=== PATIENT | female | born 1940 | race Caucasian/White ===

== ENCOUNTER → 2017-04-17 | Day surgery (SDC) | payer MEDICARE, BC, OTHER ==
[~2017-04-17] VITALS: Ht 167.6 cm; Wt 72.6 kg
[~2017-04-17] MED LIST: /WARF5TA; ACET65TA; ACETAMINOPHEN 325 MG TAB PO PRN; ACETYLCHOLINE OPHTH SOLN 1% 2ML (MIOCHOL-E) As Ordered ONE; AcetaZOLAMIDE 500 MG ER CAP PO ONE; BALANCED SALT IRRIGATION SOLUTION 500ML BAG (FOR OR EYE MACHINE) As Ordered ONE; CALCIUM WITH VITD; CALCTAB68 PO; CRANCAP10 PO; CYCLOPENTOLATE 2% OPHTH SOLN 2ML BTL As Ordered ONE; CYCLOPENTOLATE 2% OPHTH SOLN 2ML BTL OS ONE; FLEC1TAB PO; FLECAINIDE; HEALON DUET (HEALON 10MG/ML 0.55ML & HEALON ENDOCOAT 30MG/ML 0.85ML) As Ordered ONE; KETOROLAC 0.5% OPHTH SOLN OS ONE; LIDOCAINE 1% SDV 5 ML VIAL As Ordered ONE; LIDOCAINE 4% INJ 5 ML AMP OU ONE; LOPR50TA; LR 500 ML IV SCH; METO-346 PO; METOPROLOL; MIDAZOLAM INJ 2 MG/2 ML VIAL (J2250) As Ordered ONE; MIDO5TA PO; MIDODRINE; OCUVITE; OFLOXACIN 0.3 % (OCUFLOX) OPTH SOL 5ML As Ordered ONE; OFLOXACIN 0.3 % (OCUFLOX) OPTH SOL 5ML OS ONE; PERC5TAB8; PERCOCET; PHENYLEPHRINE 2.5% OPHTH SOL 2ML As Ordered ONE; PHENYLEPHRINE 2.5% OPHTH SOL 2ML OS ONE; POVIDONE-IODINE 5% OPHTH PREP SOL 30ML As Ordered ONE; PRAV10TA2; PRAV10TA3 PO; PRESCAP6 PO; PROPARACAINE 0.5% OPHTH SOL 15ML OS PRN; TRIMETHOBENZAMIDE 300 MG CAP PO PRN; TROPICAMIDE 1% OPHTH SOLN 2ML As Ordered ONE; TROPICAMIDE 1% OPHTH SOLN 2ML OS ONE; WARF-23 PO; fentaNYL 100 MCG/2 ML INJECTION (J3010) As Ordered ONE
[2017-04-17] MEDS: CEFUROXIME 1MG/0.1ML INTRACAMERAL INJ As Ordered ONE ×2 (06:25→09:29)
[2017-04-17 10:20] VITALS: BP 172/78
--- NOTE | 2017-04-17 10:20 | RO ---
DATE OF PROCEDURE: 04/17/2017 PREPROCEDURE DIAGNOSIS: Age-related nuclear cataract in the left eye. POSTPROCEDURE DIAGNOSIS: Age-related nuclear cataract in the left eye. PROCEDURE: Phacoemulsification and posterior chamber intraocular lens implantation of the left eye. The lens used was AU00T0, 17.0 diopter. SURGEON: Rosaura Bartholomew MD INSURANCE JOB TITLES: ANESTHESIA: Topical with sedation. DESCRIPTION OF PROCEDURE: The patient was prepped and draped in the usual fashion. A lid speculum was placed between the lids. The eye was fixated. A stab incision was made to the anterior chamber, and 1% non-preserved lidocaine was instilled. Then, viscoelastic was instilled. The eye was re-fixated. A 2.75 mm sapphire keratome was used to make a clear corneal temporal limbal incision. Capsulorrhexis was begun with a 30-gauge bent needle and then carried out in a circular fashion with capsulorrhexis forceps. The lens was hydrodissected, and then the phacoemulsification unit was used to make a groove in the nucleus in two meridians. The nucleus was then cracked into four quadrants. Each quadrant was removed with the phacoemulsification unit. Any remaining cortex was removed with the irrigation and aspiration (I and A) unit. Capsular bag was refilled with viscoelastic. A posterior chamber intraocular lens was placed in the capsular bag without difficulty. Any remaining viscoelastic was removed with the I and A unit. The wound was hydrated, and Miochol and cefuroxime were instilled into the anterior chamber. The patient tolerated the procedure well and went to the recovery room in stable condition.
== END | disposition home or self-care (01) ==
LOC: M SDC 06:12
PROVIDERS: ATTEND Ophthalmology
DX: H25.12 Age-related nuclear cataract, left eye (principal); I48.91 Unspecified atrial fibrillation; E78.5 Hyperlipidemia, unspecified; I10 Essential (primary) hypertension; G47.30 Sleep apnea, unspecified; R94.31 Abnormal electrocardiogram [ECG] [EKG]; Z88.0 Allergy status to penicillin; Z79.899 Other long term (current) drug therapy; Z86.19 Personal history of other infectious and parasitic diseases; Z96.652 Presence of left artificial knee joint; Z78.0 Asymptomatic menopausal state
CPT/HCPCS: 66984; J2250; J3010; V2632

== ENCOUNTER → 2017-04-24 | Day surgery (SDC) | payer MEDICARE, BC, OTHER ==
[~2017-04-24] VITALS: Ht 167.6 cm; Wt 72.0 kg
[~2017-04-24] MED LIST changes: +CEFUROXIME 1MG/0.1ML INTRACAMERAL INJ As Ordered ONE; -CYCLOPENTOLATE 2% OPHTH SOLN 2ML BTL As Ordered ONE; +CYCLOPENTOLATE 2% OPHTH SOLN 2ML BTL OD ONE; -CYCLOPENTOLATE 2% OPHTH SOLN 2ML BTL OS ONE; +KETOROLAC 0.5% OPHTH SOLN OD ONE; -KETOROLAC 0.5% OPHTH SOLN OS ONE; +LR 500 ML IV ONE; -LR 500 ML IV SCH; -OFLOXACIN 0.3 % (OCUFLOX) OPTH SOL 5ML As Ordered ONE; +OFLOXACIN 0.3 % (OCUFLOX) OPTH SOL 5ML OD ONE; -OFLOXACIN 0.3 % (OCUFLOX) OPTH SOL 5ML OS ONE; -PHENYLEPHRINE 2.5% OPHTH SOL 2ML As Ordered ONE; +PHENYLEPHRINE 2.5% OPHTH SOL 2ML OD ONE; -PHENYLEPHRINE 2.5% OPHTH SOL 2ML OS ONE; +PROPARACAINE 0.5% OPHTH SOL 15ML OD PRN; -PROPARACAINE 0.5% OPHTH SOL 15ML OS PRN; -TROPICAMIDE 1% OPHTH SOLN 2ML As Ordered ONE; +TROPICAMIDE 1% OPHTH SOLN 2ML OD ONE; -TROPICAMIDE 1% OPHTH SOLN 2ML OS ONE
[2017-04-24 09:26] VITALS: BP 133/52
--- NOTE | 2017-04-25 15:59 | RO ---
DATE OF PROCEDURE: 04/24/2017 PREPROCEDURE DIAGNOSIS: Age-related nuclear cataract right eye. POSTPROCEDURE DIAGNOSIS: Age-related nuclear cataract right eye. PROCEDURE: Phacoemulsification and posterior chamber intraocular lens implantation. The lens used was AU00T0, 17.0 diopter. SURGEON: Rosaura Bartholomew MD FIELD SCOUT: ANESTHESIA: Topical with sedation. DESCRIPTION OF PROCEDURE: The patient was prepped and draped in the usual fashion. A lid speculum was placed between the lids. The eye was fixated. A stab incision was made to the anterior chamber, and 1% non-preserved lidocaine was instilled. Then, viscoelastic was instilled. The eye was re-fixated. A 2.75 mm sapphire keratome was used to make a clear corneal temporal limbal incision. Capsulorrhexis was begun with a 30-gauge bent needle and then carried out in a circular fashion with capsulorrhexis forceps. The lens was hydrodissected, and then the phacoemulsification unit was used to make a groove in the nucleus in two meridians. The nucleus was then cracked into four quadrants. Each quadrant was removed with the phacoemulsification unit. Any remaining cortex was removed with the irrigation and aspiration (I and A) unit. Capsular bag was refilled with viscoelastic. A posterior chamber intraocular lens was placed in the capsular bag without difficulty. Any remaining viscoelastic was removed with the I and A unit. The wound was hydrated, and Miochol and cefuroxime were instilled into the anterior chamber. The patient tolerated the procedure well and went to the recovery room in stable condition.
== END | disposition home or self-care (01) ==
LOC: M SDC 06:15
PROVIDERS: ATTEND Ophthalmology
DX: H25.11 Age-related nuclear cataract, right eye (principal); I10 Essential (primary) hypertension; I48.2 Chronic atrial fibrillation; R94.31 Abnormal electrocardiogram [ECG] [EKG]; E78.5 Hyperlipidemia, unspecified; G47.30 Sleep apnea, unspecified; Z88.0 Allergy status to penicillin; Z79.899 Other long term (current) drug therapy; Z79.01 Long term (current) use of anticoagulants; Z91.048 Other nonmedicinal substance allergy status; Z87.891 Personal history of nicotine dependence
CPT/HCPCS: 66984; J2250; J3010; V2632

== ENCOUNTER → 2017-08-16 | Outpatient (REF) | payer MEDICARE, BC, OTHER ==
[~2017-08-16] MED LIST changes: -ACETAMINOPHEN 325 MG TAB PO PRN; -ACETYLCHOLINE OPHTH SOLN 1% 2ML (MIOCHOL-E) As Ordered ONE; -AcetaZOLAMIDE 500 MG ER CAP PO ONE; -BALANCED SALT IRRIGATION SOLUTION 500ML BAG (FOR OR EYE MACHINE) As Ordered ONE; -CEFUROXIME 1MG/0.1ML INTRACAMERAL INJ As Ordered ONE; -CYCLOPENTOLATE 2% OPHTH SOLN 2ML BTL OD ONE; -HEALON DUET (HEALON 10MG/ML 0.55ML & HEALON ENDOCOAT 30MG/ML 0.85ML) As Ordered ONE; -KETOROLAC 0.5% OPHTH SOLN OD ONE; -LIDOCAINE 1% SDV 5 ML VIAL As Ordered ONE; -LIDOCAINE 4% INJ 5 ML AMP OU ONE; -LR 500 ML IV ONE; -MIDAZOLAM INJ 2 MG/2 ML VIAL (J2250) As Ordered ONE; -OFLOXACIN 0.3 % (OCUFLOX) OPTH SOL 5ML OD ONE; -PHENYLEPHRINE 2.5% OPHTH SOL 2ML OD ONE; -POVIDONE-IODINE 5% OPHTH PREP SOL 30ML As Ordered ONE; -PROPARACAINE 0.5% OPHTH SOL 15ML OD PRN; -TRIMETHOBENZAMIDE 300 MG CAP PO PRN; -TROPICAMIDE 1% OPHTH SOLN 2ML OD ONE; -fentaNYL 100 MCG/2 ML INJECTION (J3010) As Ordered ONE
[2017-08-16 15:43] LABS: BASO # 0.1 10^3/uL (0.0-0.2); BASO % 0.9 % (0.0-1.0); EOS # 0.2 10^3/uL (0.0-0.50); EOS % 3.1 % (0.0-3.0); IMMATURE GRANULOCYTE % 0.2 % (0-0); LYMPH # 1.4 10^3/uL (1.5-4.5); LYMPH % 23.2 % (24.0-44.0); MEAN CORPUSCULAR HEMOGLOBIN 29.3 pg (27.0-33.0); MEAN CORPUSCULAR HGB CONC 31.8 g/dl (32.0-36.5); MEAN CORPUSCULAR VOLUME 92.3 fl (80.0-96.0); MONO # 0.6 10^3/uL (0.0-0.8); MONO % 9.4 % (0.0-5.0); NEUTROPHILS # 3.7 10^3/uL (1.8-7.7); NEUTROPHILS % 63.2 % (36.0-66.0); PLATELET COUNT, AUTOMATED 262 10^3/uL (150-450); RED CELL DISTRIBUTION WIDTH 13.9 % (11.5-14.5); WHITE BLOOD COUNT 5.9 10^3/uL (4.0-10.0)
[2017-08-16 15:52] LABS: ALBUMIN/GLOBULIN RATIO 1.05 (1.00-1.93); ALKALINE PHOSPHATASE 82 U/L (45-117); ALT/SGPT 17 U/L (12-78); ANION GAP 7 MEQ/L (8-16); AST/SGOT 13 U/L (15-37); BILIRUBIN,TOTAL 0.4 MG/DL (0.2-1.0); BLOOD UREA NITROGEN 14 MG/DL (7-18); CALCIUM LEVEL 10.1 MG/DL (8.8-10.2); CARBON DIOXIDE LEVEL 29 MEQ/L (21-32); CHLORIDE LEVEL 103 MEQ/L (98-107); CREATININE FOR GFR 0.77 MG/DL (0.55-1.02); GLOMERULAR FILTRATION RATE > 60.0 (>39); GLUCOSE, FASTING 81 MG/DL (83-110); POTASSIUM SERUM 4.4 MEQ/L (3.5-5.1); SODIUM LEVEL 139 MEQ/L (136-145); TOTAL PROTEIN 7.8 GM/DL (6.4-8.2)
[2017-08-16 16:25] LABS: FOLATE 20.9 NG/ML (>5.4); VITAMIN B12 LEVEL 499 PG/ML (247-911)
[2017-08-16 16:46] LABS: ERYTHROCYTE SEDIMENTATION RATE 27 mm/hr (0-30)
[2017-08-19 10:51] LABS: ALBUMIN 4.31 GM/DL (3.29-5.55); ALBUMIN % 55.2 % (55.8-66.1); GAMMA GLOBULIN % 21.1 % (11.1-18.8)
[2017-08-22 00:08] LABS: SJOGREN'S ANTI SS-A <0.2 AI (0.0-0.9); SJOGREN'S ANTI SS-B <0.2 AI (0.0-0.9); VITAMIN E LEVEL 22.2 mg/L (6.5-21.5)
== END ==
LOC: M LABNEURO 11:16
PROVIDERS: ATTEND Psychiatry & Neurology Neurology
DX: F06.8 Other specified mental disorders due to known physiological condition (principal); I10 Essential (primary) hypertension; Z79.01 Long term (current) use of anticoagulants; R73.01 Impaired fasting glucose

== ENCOUNTER → 2019-03-05 | Outpatient (REF) | payer MEDICARE, OTHER ==
[~2019-03-05] MED LIST changes: -/WARF5TA; +COUM1TAB17
== END ==
LOC: M LAB LCGH 15:57
PROVIDERS: ATTEND Physician Assistant
DX: B07.9 Viral wart, unspecified (principal)

== ENCOUNTER 2019-09-01 15:36 | Outpatient (CLI) | payer MEDICARE, BC, OTHER ==
[~2019-09-01] VITALS: Ht 167.6 cm; Wt 69.0 kg
[2019-09-01] MEDS ORDERED: ZOLEDRONIC ACID 5 MG in IV 1 EA IV ONE (16:00)
[2019-09-01 16:15] VITALS: BP 152/69
[2019-09-01 16:55] VITALS: BP 127/67
== END 2019-09-01 17:00 | disposition home or self-care (01) ==
LOC: M INFU 15:36
PROVIDERS: ATTEND Internal Medicine Endocrinology, Diabetes & Metabolism
DX: M81.0 Age-related osteoporosis without current pathological fracture (principal); Z88.0 Allergy status to penicillin
CPT/HCPCS: 96365; J3489

== ENCOUNTER → 2019-09-04 | Outpatient (REF) | payer MEDICARE, OTHER ==
[2019-09-04 13:25] LABS: APPEARANCE, URINE CLEAR (CLEAR); BACTERIA, URINE AUTO NEGATIVE (NEGATIVE); BILIRUBIN, URINE AUTO NEGATIVE (NEGATIVE); BLOOD, URINE BLOOD NEGATIVE (NEGATIVE); COLOR, URINE YELLOW (YELLOW); GLUCOSE, URINE (UA) AUTO NEGATIVE (NEGATIVE); KETONE, URINE AUTO TRACE mg/dL (NEGATIVE); LEUKOCYTE ESTERASE, URINE AUTO TRACE (NEGATIVE); MUCUS, URINE SMALL (NEGATIVE); NITRITE, URINE AUTO NEGATIVE (NEGATIVE); PROTEIN, URINE AUTO NEGATIVE (NEGATIVE); RBC, URINE AUTO 0 /HPF (0-3); SPECIFIC GRAVITY URINE AUTO 1.026 (1.002-1.035); SQUAMOUS EPITHELIAL CELL UR AU 1 /HPF (0-6); UROBILINOGEN, URINE AUTO 0.2 mg/dL (0.0-2.0); WBC, URINE AUTO 1 /HPF (0-3)
== END ==
LOC: M SMT 12:58
PROVIDERS: ATTEND Nurse Practitioner Women's Health
DX: N39.0 Urinary tract infection, site not specified (principal)
CPT/HCPCS: 81001; 87086; G0463

== ENCOUNTER → 2019-10-14 | Outpatient (CLI) | payer MEDICARE, BC, OTHER ==
[2019-10-14 14:10] LABS: CALCIUM LEVEL 10.7 MG/DL (8.8-10.2); CREATININE FOR GFR 1.03 MG/DL (0.55-1.30); GLOMERULAR FILTRATION RATE 54.9 (>32)
== END ==
LOC: M LAB 12:13
PROVIDERS: ATTEND Internal Medicine Endocrinology, Diabetes & Metabolism
DX: M81.0 Age-related osteoporosis without current pathological fracture (principal)

== ENCOUNTER 2020-09-02 10:45 | Outpatient (CLI) | payer MEDICARE, BC, OTHER ==
[~2020-09-02] VITALS: Ht 167.6 cm; Wt 70.1 kg
[2020-09-02] MEDS ORDERED: ZOLEDRONIC ACID 5 MG in IV 1 EA IV ONE (11:00)
[2020-09-02 11:15] VITALS: BP 140/89
[2020-09-02 12:35] VITALS: BP 121/78
== END 2020-09-02 12:35 | disposition home or self-care (01) ==
LOC: M INFU 10:45
PROVIDERS: ATTEND Internal Medicine Endocrinology, Diabetes & Metabolism
DX: M81.0 Age-related osteoporosis without current pathological fracture (principal)
CPT/HCPCS: 96365; J3489

== ENCOUNTER 2021-03-17 13:39 | Inpatient (IN) | payer MEDICARE, BC, OTHER ==
[~2021-03-17] VITALS: Ht 167.6 cm; Wt 71.7 kg
[2021-03-17] MEDS ORDERED: ELIQ2.5T PO (13:52)
[2021-03-17] MEDS ORDERED: METO1TAB32 PO (13:52)
[2021-03-17] MEDS ORDERED: BACTDSTA PO (13:52)
[2021-03-17] MEDS ORDERED: MEMA1PAK PO (13:52)
[2021-03-17] MEDS ORDERED: NS 1,000 ML IV ONE (14:35)
[2021-03-17 15:25] LABS: BASO # 0.1 10^3/uL (0.0-0.2); BASO % 0.7 % (0.0-1.0); EOS # 0.4 10^3/uL (0.0-0.5); EOS % 4.8 % (0.0-3.0); HEMATOCRIT 38.7 % (36.0-47.0); HEMOGLOBIN 12.6 g/dl (12.0-15.5); LYMPH % 13.2 % (24.0-44.0); MEAN CORPUSCULAR HEMOGLOBIN 29.3 pg (27.0-33.0); MEAN CORPUSCULAR HGB CONC 32.6 g/dl (32.0-36.5); MONO # 0.8 10^3/uL (0.0-0.8); NEUTROPHILS # 5.3 10^3/uL (1.5-8.5); NEUTROPHILS % 69.8 % (36.0-66.0); PLATELET COUNT, AUTOMATED 259 10^3/uL (150-450); WHITE BLOOD COUNT 7.6 10^3/uL (4.0-10.0)
[2021-03-17] MEDS ORDERED: POTASSIUM CHLORIDE 10 MEQ SR TABLET PO ONE (15:40)
[2021-03-17] MEDS ORDERED: METOPROLOL TART 25 MG TABLET PO ONE (16:00)
[2021-03-17 16:07] LABS: ALBUMIN 3.1 GM/DL (3.2-5.2); ALT/SGPT 15 U/L (12-78); BILIRUBIN,DIRECT 0.2 MG/DL (0.0-0.2); BILIRUBIN,TOTAL 0.4 MG/DL (0.2-1.0); CK-MB VALUE MASS < 1.0 NG/ML (<3.6); CPK CREATINE PHOSPHOKINASE 40 U/L (26-192); LIPASE 109 U/L (73-393); POTASSIUM SERUM 3.3 MEQ/L (3.5-5.1); TOTAL PROTEIN 6.7 GM/DL (6.4-8.2); TROPONIN I < 0.02 NG/ML (< 0.10)
[2021-03-17] MEDS ORDERED: DONE5TAB82 PO (16:52)
[2021-03-17] MEDS ORDERED: CALCD50TA PO (16:52)
[2021-03-17] MEDS ORDERED: ISOVUE-370 76% 100ML VIAL As Ordered ONE (17:00)
[2021-03-17] MEDS: METOPROLOL 5 MG/5 ML VIAL IV SCH ×7 (17:10→23:32)
[2021-03-17] MEDS: KCL 40MEQ in NS 1000ML 1,000 ML IV SCH (18:04)
--- NOTE | 2021-03-17 18:58 | HPEPDOC ---
General Date of Admission 03/17/21 Date of Service: March 17, 2021 Chief Complaint The patient is a 80-year-old female admitted with a reason for visit of Diarrhea. History of Present Illness 80-year-old female with past medical history of paroxysmal atrial fibrillation, hypertension, hyperlipidemia, sleep apnea on CPAP, orthostatic hypotension, vasovagal syncope presented to the emergency room for more than one month history of crampy abdominal pain and diarrhea. Her diarrhea varies from day to d ay can range from anywhere from 5 to 10 times and she is often incontinent of stool. No blood in stool. She also complained of dizziness, weakness, malaise and overall not feeling well. Her abdominal pain is crampy in nature in the central of the abdomen. When it comes it is about 10 x 10 in intensity, but then gradually it passes. She feels the urge to go to the bathroom after each crampy abdominal pain. Of note she was hospitalized twice in [place] in January for UTI and Sepsis. The diarrhea started in the end of January. She came back to [place] on 02/14/21. She got her second COVID vaccine 2 weeks ago here and the first one was in [place]. There was some delay in the second one due to the d iarrhea. She went to see her PMD at [facility] yesterday and had a GI panel done which is positive for C. difficile. In the ED, patient was noted to be in Afib with RVR with a pulse ranging from 120s to 160s. She was also hypokalemic. Patient was admitted for C Diff diarrhea, dehydration, hypokalemia and A. fib with RVR Home Medications Scheduled Apixaban (Eliquis) 2.5 Mg Tablet, 2.5 MG PO BID, (Reported) Calcium/Vitamin D (Calcium 500-Vit D3 200 Tablet) 1 Each Tablet, 1 TAB PO DAILY, (Reported) Donepezil HCl (Donepezil HCl) 5 Mg Tablet, 5 MG PO QHS, (Reported) Memantine HCl (Memantine HCl) 1 Each Tab.ds.pk, 1 CAP PO DAILY, (Reported) TITRATE UP PER DOSE SYLVESTER DIRECTIONS. SHOULD BE ON 2ND WEEK OF TITRATION. Metoprolol Succinate (Metoprolol Succinate) 25 Mg Tab.er.24h, 25 MG PO DAILY, (Reported) Midodrine HCl (Midodrine HCl) 5 Mg Tab, 5 MG PO BID, (Reported) Pravastatin Sodium (Pravastatin Sodium) 10 Mg Tab, 10 MG PO DAILY, (Reported) Sulfamethoxazole/Trimethoprim (Sulfamethoxazole-Tmp Ds Tablet) 1 Each Tablet, 1 TAB PO BID, (Reported) Allergies Coded Allergies: Penicillins (Verified Allergy, Intermediate, hives, 09/01/19) Past Medical History Medical History Paroxysmal ATRIAL FIBRILLATION HTN HLD AROLDO/CPAP DEMENTIA ARTHRITIS FREQUENT UTI'S Orthostatic hypotension, vasovagal syncopal Surgical History KNEE REPLACEMENT LEFT 2008 CARDIAC ABLATION X2 APPENDECTOMY COLONOSCOPY CYSTOSCOPY 10/25/2020 Family History Mother at age 90, had lymphoma. Dad at 78, had colon cancer and heart disease. One sister, ovarian past cancer. Another sister breast cancer Social History * Smoker: non-smoker Alcohol: Denies Drugs: denies A-FIB/CHADSVASC A-FIB History Current/History of A-Fib/PAF?: Yes Current PO Anticoag Therapy: Yes Review of Systems Constitutional: Reports: Malaise, Weakness, Fatigue Eyes: Denies: Pain, Vision change ENT: Denies: Head Aches, Ear Pain, Dysphagia Pulmonary: Denies: Dyspnea, Cough Cardiovascular: Denies: Chest Pain, Palpitations, Orthopnea, Paroxysmal Noc. Dyspnea, Lt Headedness Gastrointestinal: Reports: Abdominal Pain, Diarrhea; Denies: Nausea, Vomiting, Melena, Hematochezia Genitourinary: Denies: Dysuria, Frequency, Incontinence Hematologic: Denies: Bruising, Bleeding Excessively Psych: Reports: Memory Issues Physical Examination General Exam: Positive: Alert, Cooperative, No Acute Distress Eye Exam: Positive: PERRLA, Conjunctiva & lids normal, EOMI; Negative: Sclera icteric ENT Exam: Positive: Atraumatic Neck Exam: Positive: Supple; Negative: JVD, thyromegaly Chest Exam: Positive: Clear to auscultation, Normal air movement Heart Exam: Positive: Tachycardic, Irregular Rhythm, Normal S1, Normal S2; Negative: Murmurs, Rubs Telemetry: Positive: Atrial fibrillation Abdomen Exam: Positive: BS Hyperactive, Soft; Negative: Tenderness, Hepatospenomegaly Extremity Exam: Positive: Edema (2 +); Negative: Clubbing, Cyanosis Neuro Exam: Positive: Normal Speech, Strength at 5/5 X4 ext, Normal Tone Vital Signs Vital Signs Date Time Temp Pulse Resp B/P (MAP) Pulse Ox O2 Delivery O2 Flow Rate FiO2 03/17/21 16:52 146 113/57 03/17/21 13:41 98.2 18 96 Laboratory Data Labs 24H Laboratory Tests 2 03/17/21 14:35: Immature Granulocyte % (Auto) 0.5, Neutrophils (%) (Auto) 69.8H, Lymphocytes (%) (Auto) 13.2L, Monocytes (%) (Auto) 11.0H, Eosinophils (%) (Auto) 4.8H, Basophils (%) (Auto) 0.7, Neutrophils # (Auto) 5.3, Lymphocytes # (Auto) 1.0L, Monocytes # (Auto) 0.8, Eosinophils # (Auto) 0.4, Basophils # (Auto) 0.1, Nucleated Red Blood Cells % (auto) 0.0, Total Bilirubin 0.4, Direct Bilirubin 0.2, Aspartate Amino Transf (AST/SGOT) 18, Alanine Aminotransferase (ALT/SGPT) 15, Alkaline Phosphatase 65, Total Creatine Kinase 40, Creatine Kinase MB < 1.0, Creatine K inase MB Relative Index 2.50, Troponin I < 0.02, Total Protein 6.7, Albumin 3.1L, Albumin/Globulin Ratio 0.9L, Lipase 109 03/17/21 15:09: POC Glucose (Misc Panel) 121H, POC Sodium (Misc Panel) 138, POC Potassium (Misc Panel) 2.9*L, POC Chloride (Misc Panel) 99, POC Total CO2 (Misc Panel) 30.0H, POC Blood Urea Nitrogen (Misc Panel 12, POC Ionized Calcium (Misc Panel) 5.1, POC Creatinine (Misc Panel) 0.8, POC Hematocrit (Misc Panel) 37.0L 03/17/21 16:34: POC Lactate (Misc Panel) 1.83 CBC/BMP Laboratory Tests 03/17/21 14:35 Microbiology Microbiology 03/17/21 Respiratory Virus Panel (PCR) ([facility]) - Final, Complete Assessment/Plan 80-year-old female with past medical history of paroxysmal atrial fibrillation, hypertension, hyperlipidemia, sleep apnea on CPAP, orthostatic hypotension, vasovagal syncope presented to the emergency room for more than one month history of crampy abdominal pain and diarrhea. She also complained of dizziness, weakness, malaise and overall not feeling well. Of note she was hospitalized twice in [place] in January for UTI and Sepsis. The diarrhea started in the end of January. She came back to [place] on 02/14/21. She got her second COVID vaccine 2 weeks ago here and the first one was in [place]. There was some delay in the second one due to the diarrhea. She went to see her PMD at [facility] yesterday and had a GI panel done which is positive for C. difficile. In the ED, patient was noted to be in Afib with RVR with a pulse ranging from 120s to 160s. She was also hypokalemic. Patient was admitted for C Diff diarrhea, dehydration, hypokalemia and A. fib with RVR C diff colitis PO vancomycin isolation Dehydration though patient has bipedal edema but i think she still may be intravascularly dehydrated. So will give IVF overnight Hypokalemia replaced. Afib with RVR will replace IVF and potassium. Received 1 of Po metoprolol BP Soft about 105/60 so did not give the IV metoprolol She is asymptomatic. continue metoprolol q 6 hours if Bp tolerates and eliquis If Bp continues to be low will need have to use digoxin. Dementia will continue donepezil Has h/o orthostatic hypotension will hold midodrine as this can elevate heart rate. Plan / VTE VTE Prophylaxis Ordered?: Yes SANNA CLEANING MD March 17, 2021 17:29
--- NOTE | 2021-03-17 18:59 | REPVR ---
PROCEDURE INFORMATION: Exam: CT Abdomen And Pelvis With Contrast Exam date and time: 03/17/2021 5:08 PM Age: 80 years old Clinical indication: Abdominal pain; Generalized; Additional info: Abd pain, diarrhea TECHNIQUE: Imaging protocol: Computed tomography of the abdomen and pelvis with contrast. Radiation optimization: All CT scans at this facility use at least one of these dose optimization techniques: automated exposure control; mA and/or kV adjustment per patient size (includes targeted exams where dose is matched to clinical indication); or iterative reconstruction. Contrast material: ISOVUE 370; Contrast volume: 100 ml; Contrast route: INTRAVENOUS (IV); COMPARISON: No relevant prior studies available. FINDINGS: Lungs: There is discoid atelectasis or scar in the right lower lobe. Heart size appears enlarged. Small amount of hypodense pericardial fluid. Atherosclerotic calcification in the distal thoracic aorta. Liver: Minimal diffuse fatty liver change. Gallbladder and bile ducts: Questionable tiny gallstones in the gallbladder. There may also be very minimal calcification in the anterior gallbladder wall. No biliary ductal dilatation. Pancreas: Normal. No ductal dilation. Spleen: Normal. No splenomegaly. Adrenal glands: Normal. No mass. Kidneys and ureters: Normal. No hydronephrosis. Stomach and bowel: Small amount of dense material in the mid to distal stomach, most likely ingested radiodense material. There is no bowel dilatation to indicate obstruction. No pneumatosis. There are segments of wall thickening which are relatively long, seen in the descending colon and also in the sigmoid colon. There are multiple sigmoid diverticula with increased vascularity adjacent to the sigmoid colon, and areas of adjacent fat stranding and trace fluid near the sigmoid colon. It is unclear whether findings represent colitis, which is favored, versus diverticulitis. Diverticulitis is considered less likely given that the appearance is multifocal and relatively long segment not clearly localized to a single diverticulum. Appendix: Appendix is partially visualized, in the visualized portion is grossly unremarkable. Intraperitoneal space: Unremarkable. No free air. No significant fluid collection. Vasculature: There is calcified atherosclerotic plaque in the abdominal aorta and medium-sized arteries in the abdomen and pelvis. No aortic aneurysm. Lymph nodes: Unremarkable. No enlarged lymph nodes. Urinary bladder: Unremarkable as visualized. Reproductive: There are multiple calcifications in the uterine myometrium, likely calcified fibroids and vascular calcifications. Bones/joints: 5 mm anterolisthesis at L5-S1. Degenerative facet disease in the lower lumbar spine. Degenerative disc disease at L3-L4 and L5-S1. Soft tissues: Unremarkable. IMPRESSION: 1. Relatively long segment wall thickening involving portions of the descending and sigmoid colon, most likely multifocal colitis, which could be infectious, inflammatory, or ischemic. Adjacent fat stranding and small amount of ascites. There are multiple sigmoid diverticula without definite focal features of diverticulitis. 2. Questionable tiny gallstones in the gallbladder, and there may also be very minimal calcification in the anterior gallbladder wall, which can predispose to gallbladder cancer. 3. Minimal diffuse fatty liver change. Electronically signed by: Juliana Rodriguez On 03/17/2021 18:59:06 PM
--- NOTE | 2021-03-17 19:09 | ECGEPIP ---
[facility] - ED Test Date: 2021-03-17 Pat Name: DESHAWN COLLAZO Department: Room: - Gender: Female [employer] Installer: er : [id number] Requested By: KATARZYNA Seay PA-C Order Number: [id number] Reading MD: Leandro Rangel Measurements Intervals [place] Rate: 128 P: [place]: QRS: 68 QRSD: 112 T: -55 QT: 260 QTc: 379 Interpretive Statements Atrial fibrillation with rapid ventricular response Right bundle branch block T wave abnormality, consider inferolateral ischemia NO PRIORS FOR COMPARISON Electronically Signed on 03-17-2021 19:08:53 EDT by Leandro Rangel
[2021-03-17 19:20] VITALS: BP 115/73
[2021-03-17] MEDS ORDERED: DIGOXIN INJ 0.5 MG/2 ML AMP (J1160) IV ONE (20:00)
[2021-03-17] MEDS: APIXABAN 2.5 MG TAB (ELIQUIS) PO SCH (20:03)
[2021-03-17] MEDS: DONEPEZIL 5 MG TAB PO SCH (20:03)
[2021-03-17] MEDS: METOPROLOL TART 12.5 MG PER 1/2 TAB PO SCH (21:24)
[2021-03-17 21:30] VITALS: BP 138/96
[2021-03-17] MEDS: VANCOMYCIN ORAL SOL 250MG/5ML ORAL SYRINGE PO SCH (23:29)
[2021-03-18] VITALS: BP 110/70
[2021-03-18] MEDS: DIGOXIN INJ 0.5 MG/2 ML AMP (J1160) IV SCH ×2 (01:21→06:50)
[2021-03-18 01:34] LABS: BLOOD UREA NITROGEN 9 MG/DL (7-18); CALCIUM LEVEL 9.1 MG/DL (8.8-10.2); CARBON DIOXIDE LEVEL 26 MEQ/L (21-32); CHLORIDE LEVEL 109 MEQ/L (98-107); CREATININE FOR GFR 0.78 MG/DL (0.55-1.30); GLOMERULAR FILTRATION RATE > 60.0 (>32); GLUCOSE, FASTING 139 MG/DL (70-100); MAGNESIUM LEVEL 1.8 MG/DL (1.8-2.4); POTASSIUM SERUM 3.8 MEQ/L (3.5-5.1); SODIUM LEVEL 140 MEQ/L (136-145)
[2021-03-18] MEDS: METOPROLOL TART 12.5 MG PER 1/2 TAB PO SCH (02:41)
[2021-03-18 04:00] VITALS: BP 128/84
[2021-03-18 05:06] LABS: HEMOGLOBIN 11.8 g/dl (12.0-15.5); MEAN CORPUSCULAR HGB CONC 32.8 g/dl (32.0-36.5); MEAN CORPUSCULAR VOLUME 91.6 fl (80.0-96.0); PLATELET COUNT, AUTOMATED 239 10^3/uL (150-450); RED BLOOD COUNT 3.93 10^6/uL (4.00-5.40); WHITE BLOOD COUNT 12.4 10^3/uL (4.0-10.0)
[2021-03-18] MEDS: VANCOMYCIN ORAL SOL 250MG/5ML ORAL SYRINGE PO SCH ×3 (05:07→18:01)
[2021-03-18] MEDS: KCL 40MEQ in NS 1000ML 1,000 ML IV SCH ×2 (05:07→16:38)
[2021-03-18 05:13] LABS: BLOOD UREA NITROGEN 8 MG/DL (7-18); CALCIUM LEVEL 8.6 MG/DL (8.8-10.2); CARBON DIOXIDE LEVEL 28 MEQ/L (21-32); CHLORIDE LEVEL 109 MEQ/L (98-107); CREATININE FOR GFR 0.82 MG/DL (0.55-1.30); GLOMERULAR FILTRATION RATE > 60.0 (>32); GLUCOSE, FASTING 125 MG/DL (70-100); POTASSIUM SERUM 3.9 MEQ/L (3.5-5.1); SODIUM LEVEL 141 MEQ/L (136-145)
[2021-03-18 05:22] LABS: BASOPHILS 1 % (0-1); EOSINOPHILS 3 % (0-3); LYMPHOCYTES 4 % (16-44); MONOCYTES 7 % (0-5); NEUTROPHILS 81 % (28-66); PLATELET ESTIMATE NORMAL (NORMAL)
[2021-03-18 05:23] LABS: POLYCHROMASIA 1+
[2021-03-18 08:00] VITALS: BP 132/70
[2021-03-18] MEDS: APIXABAN 2.5 MG TAB (ELIQUIS) PO SCH ×2 (09:06→20:21)
[2021-03-18] MEDS: METOPROLOL TART 25 MG TABLET PO SCH ×3 (09:06→20:22)
--- NOTE | 2021-03-18 10:22 | IPNPDOC ---
Subjective Date Seen The patient was seen on 03/18/21. Subjective Chief Complaint/HPI No complaints except for uncontrollable diarrhea, no abdominal pain , no nausea or vomiting. no chest pain or palpitations. Objective Physical Examination General Exam: Positive: Alert, Cooperative, No Acute Distress Eye Exam: Positive: PERRLA, Conjunctiva & lids normal, EOMI; Negative: Sclera icteric ENT Exam: Positive: Atraumatic Neck Exam: Positive: Supple; Negative: JVD, thyromegaly Chest Exam: Positive: Clear to auscultation, Normal air movement Heart Exam: Positive: Tachycardic, Irregular Rhythm, Normal S1, Normal S2; Negative: Murmurs, Rubs Telemetry: Positive: Atrial fibrillation Abdomen Exam: Positive: BS Hyperactive, Soft; Negative: Tenderness, Hepatospenomegaly Extremity Exam: Positive: Edema (2 +); Negative: Clubbing, Cyanosis Neuro Exam: Positive: Normal Speech, Strength at 5/5 X4 ext, Normal Tone Assessment /Plan Assessment 80-year-old female with past medical history of paroxysmal atrial fibrillation, hypertension, hyperlipidemia, sleep apnea on CPAP, orthostatic hypotension, vasovagal syncope presented to the emergency room for more than one month history of crampy abdominal pain and diarrhea. She also complained of dizziness, weakness, malaise and overall not feeling well. Of note she was hospitalized twice in [place] in January for UTI and Sepsis. The diarrhea started in the end of January. She came back to [place] on 02/14/21. She got her second COVID vaccine 2 weeks ago here and the first one was in [place]. There was some delay in the second one due to the diarrhea. She went to see her PMD at [facility] yesterday and had a GI panel done which is positive for C. difficile. In the ED, patient was noted to be in Afib with RVR with a pulse ranging from 120s to 160s. She was also hypokalemic. Patient was admitted for C Diff diarrhea, dehydration, hypokalemia and A. fib with RVR C diff colitis Had 18 bowel movements in the past 24 hours some of them are small, some are larger. PO vancomycin isolation Dehydration though patient has bipedal edema but i think she still may be intravascularly dehydrated. will continue IVF. Hypokalemia replaced. Afib with RVR receiving dig continue metoprolol q 6 hours if Bp tolerates and eliquis pulse is slowing down. Dementia will continue donepezil Has h/o orthostatic hypotension will hold midodrine as this can elevate heart rate. Plan/VTE VTE Prophylaxis Ordered?: Yes VS, I&O, 24H, Fishbone Vital Signs/I&O Vital Signs Date Time Temp Pulse Resp B/P (MAP) Pulse Ox O2 Delivery O2 Flow Rate FiO2 03/18/21 09:06 98 132/70 03/18/21 08:00 97.9 19 95 Room Air I&O- Last 24 Hours up to 6 AM 03/18/21 06:00 Intake Total 2400 ml Output Total 50 ml Balance 2350 ml Laboratory Data 24H LABS Laboratory Tests 2 03/17/21 14:35: Immature Granulocyte % (Auto) 0.5, Neutrophils (%) (Auto) 69.8H, Lymphocytes (%) (Auto) 13.2L, Monocytes (%) (Auto) 11.0H, Eosinophils (%) (Auto) 4.8H, Basophils (%) (Auto) 0.7, Neutrophils # (Auto) 5.3, Lymphocytes # (Auto) 1.0L, Monocytes # (Auto) 0.8, Eosinophils # (Auto) 0.4, Basophils # (Auto) 0.1, Nucleated Red Blood Cells % (auto) 0.0, Total Bilirubin 0.4, Direct Bilirubin 0.2, Aspartate Amino Transf (AST/SGOT) 18, Alanine Aminotransferase (ALT/SGPT) 15, Alkaline Phosphatase 65, Total Creatine Kinase 40, Creatine Kinase MB < 1.0, Creatine Kinase MB Relative Index 2.50, Troponin I < 0.02, Total Protein 6.7, Albumin 3.1L, Albumin/Globulin Ratio 0.9L, Lipase 109 03/17/21 15:09: POC Glucose (Misc Panel) 121H, POC Sodium (Misc Panel) 138, POC Potassium (Misc Panel) 2.9*L, POC Chloride (Misc Panel) 99, POC Total CO2 (Misc Panel) 30.0H, POC Blood Urea Nitrogen (Misc Panel 12, POC Ionized Calcium (Misc Panel) 5.1, POC Creatinine (Misc Panel) 0.8, POC Hematocrit (Misc Panel) 37.0L 03/17/21 16:34: POC Lactate (Misc Panel) 1.83 5/8/21 00:58: Anion Gap 5L, Glomerular Filtration Rate > 60.0, Calcium Level 9.1, Magnesium Level 1.8 03/18/21 04:38: Neutrophils (%) (Auto) , Nucleated Red Blood Cells % (auto) 0.0, Neutrophils 81H, Band Neutrophils 4, Lymphocytes (Manual) 4L, Monocytes (Manual) 7H, Eosinophils (Manual) 3, Basophils (Manual) 1, Polychromasia 1+, Platelet Estimate NORMAL, Anion Gap 4L, Glomerular Filtration Rate > 60.0, Calcium Level 8.6L CBC/BMP Laboratory Tests 03/17/21 14:35 03/18/21 00:58 03/18/21 04:38 Microbiology Microbiology 03/17/21 Gastrointestinal Tract Panel (PCR) - Final, Complete Clostridium Difficile A/B Norovirus 03/17/21 Respiratory Virus Panel (PCR) ([facility]) - Final, Complete SANNA CLEANING MD March 18, 2021 10:22
[2021-03-18 12:00] VITALS: BP 132/61
[2021-03-18] MEDS ORDERED: DIGOXIN INJ 0.5 MG/2 ML AMP (J1160) IV ONE (12:00)
[2021-03-18 16:00] VITALS: BP 144/72
[2021-03-18 20:00] VITALS: BP 130/84
[2021-03-18] MEDS: DONEPEZIL 5 MG TAB PO SCH (20:21)
[2021-03-19] VITALS: BP 141/74
[2021-03-19] MEDS: KCL 40MEQ in NS 1000ML 1,000 ML IV SCH ×3 (00:16→23:40)
[2021-03-19] MEDS: VANCOMYCIN ORAL SOL 250MG/5ML ORAL SYRINGE PO SCH ×5 (00:16→23:43)
[2021-03-19] MEDS: METOPROLOL TART 25 MG TABLET PO SCH ×4 (02:29→20:56)
[2021-03-19 04:00] VITALS: BP 120/75
[2021-03-19 04:35] LABS: BASO % 0.4 % (0.0-1.0); EOS # 0.3 10^3/uL (0.0-0.5); EOS % 2.8 % (0.0-3.0); HEMATOCRIT 37.9 % (36.0-47.0); HEMOGLOBIN 11.8 g/dl (12.0-15.5); LYMPH # 0.7 10^3/uL (1.5-5.0); LYMPH % 6.7 % (24.0-44.0); MEAN CORPUSCULAR HEMOGLOBIN 28.9 pg (27.0-33.0); MEAN CORPUSCULAR HGB CONC 31.1 g/dl (32.0-36.5); MEAN CORPUSCULAR VOLUME 92.7 fl (80.0-96.0); MONO # 0.6 10^3/uL (0.0-0.8); MONO % 5.8 % (2.0-8.0); NEUTROPHILS # 8.6 10^3/uL (1.5-8.5); NEUTROPHILS % 83.6 % (36.0-66.0); PLATELET COUNT, AUTOMATED 237 10^3/uL (150-450); RED BLOOD COUNT 4.09 10^6/uL (4.00-5.40); WHITE BLOOD COUNT 10.3 10^3/uL (4.0-10.0)
[2021-03-19 04:56] LABS: BLOOD UREA NITROGEN 5 MG/DL (7-18); CALCIUM LEVEL 9.4 MG/DL (8.8-10.2); CARBON DIOXIDE LEVEL 25 MEQ/L (21-32); CHLORIDE LEVEL 111 MEQ/L (98-107); CREATININE FOR GFR 0.76 MG/DL (0.55-1.30); GLOMERULAR FILTRATION RATE > 60.0 (>32); GLUCOSE, FASTING 117 MG/DL (70-100); POTASSIUM SERUM 4.3 MEQ/L (3.5-5.1); SODIUM LEVEL 140 MEQ/L (136-145)
--- NOTE | 2021-03-19 07:56 | IPNPDOC ---
Subjective Date Seen The patient was seen on 03/19/21. Subjective Chief Complaint/HPI Confused overnight and agitated, trying to get out of bed. Needed sitter. Still with innumerable bowel movement. Some small and some large. Incontinent of stool. She remains in Afib with rvr. Pulse going up to 150s. Had 27 bowel movements int he last 24 hours Objective Physical Examination General Exam: Positive: Alert, Cooperative, No Acute Distress, Other (confused) Eye Exam: Positive: PERRLA, Conjunctiva & lids normal, EOMI; Negative: Sclera icteric ENT Exam: Positive: Atraumatic Neck Exam: Positive: Supple; Negative: JVD, thyromegaly Chest Exam: Positive: Clear to auscultation, Normal air movement Heart Exam: Positive: Tachycardic, Irregular Rhythm, Normal S1, Normal S2; Negative: Murmurs, Rubs Telemetry: Positive: Atrial fibrillation Abdomen Exam: Positive: BS Hyperactive, Soft; Negative: Tenderness, Hepatospenomegaly Extremity Exam: Positive: Edema (2 +); Negative: Clubbing, Cyanosis Neuro Exam: Positive: Normal Speech, Strength at 5/5 X4 ext, Normal Tone Assessment /Plan Assessment 80-year-old female with past medical history of dementia, paroxysmal atrial fibrillation, hypertension, hyperlipidemia, sleep apnea on CPAP, orthostatic hypotension, vasovagal syncope presented to the emergency room for more than one month history of crampy abdominal pain and diarrhea. She also complained of dizziness, weakness, malaise and overall not feeling well. Of note she was hospitalized twice in [place] in January for UTI and Sepsis. Received 10 days of levo and second time 7 days of cefdinir. She also recieved clindamycin for 7 days in November. Recieved antibioitcs in Sep and Aug of last year also for urine infections. She is now again on Bactrim. The diarrhea started in the end of January. She came back to [place] on 02/14/21. She got her second COVID vaccine 2 weeks ago here and the first one was in [place]. There was some delay in the second one due to the diarrhea. She went to see her PMD at [facility] yesterday and had a GI panel done which is positive for C. difficile. In the ED, patient was noted to be in Afib with RVR with a pulse ranging from 120s to 160s. She was also hypokalemic. Patient was admitted for C Diff colitis, Noro virus diarrhea , dehydration, hypokalemia and A. fib with RVR. C diff colitis and Norovirus diarrhea. Diarrhea continues. CT abdomen and pelvis shows: long segment wall thickening involving portions of the descending and sigmoid colon, most likely multifocal colitis, which could be infectious, inflammatory, or ischemic. Adjacent fat stranding and small amount of ascites. There are multiple sigmoid diverticula without definite focal features of diverticulitis. She was positive for c diff on 02/16/21 when she was given 7 days of vancomycin. Diarrhea did get a little better but did not stop completely. It again worsened in the past 2 weeks C diff still positive on 03/17/21 PO vancomycin second course. isolation Dehydration continue IVF Hypokalemia replaced. Afib with RVR receiving dig continue metoprolol q 6 hours if Bp tolerates and eliquis Patient is also on diltiazem 30 tid ( takes only twice). However as bp is soft will give digoxin. pulse is slowing down. Dementia will continue donepezil Has h/o orthostatic hypotension will hold midodrine as this can elevate heart rate. Calcified gallbladder wall Will need regular follow-up as this may predispose to gallbladder cancer Plan/VTE VTE Prophylaxis Ordered?: Yes VS, I&O, 24H, Yasmin Vital Signs/I&O Vital Signs Date Time Temp Pulse Resp B/P (MAP) Pulse Ox O2 Delivery O2 Flow Rate FiO2 03/19/21 07:25 180 120/75 03/19/21 04:00 97.2 17 97 Room Air I&O- Last 24 Hours up to 6 AM 03/19/21 06:00 Intake Total 2180 ml Balance 2180 ml Laboratory Data 24H LABS Laboratory Tests 2 03/19/21 04:16: Immature Granulocyte % (Auto) 0.7, Neutrophils (%) (Auto) 83.6H, Lymphocytes (%) (Auto) 6.7L, Monocytes (%) (Auto) 5.8, Eosinophils (%) (Auto) 2.8, Basophils (%) (Auto) 0.4, Neutrophils # (Auto) 8.6H, Lymphocytes # (Auto) 0.7L, Monocytes # (Auto) 0.6, Eosinophils # (Auto) 0.3, Basophils # (Auto) 0.0, Nucleated Red Blood Cells % (auto) 0.0, Anion Gap 4L, Glomerular Filtration Rate > 60.0, Calcium Level 9.4 CBC/BMP Laboratory Tests 03/19/21 04:16 Microbiology Microbiology 03/17/21 Gastrointestinal Tract Panel (PCR) - Final, Complete Clostridium Difficile A/B Norovirus 03/17/21 Respiratory Virus Panel (PCR) ([facility]) - Final, Complete SANNA CLEANING MD March 19, 2021 07:56
[2021-03-19 08:00] VITALS: BP 142/76
[2021-03-19] MEDS: APIXABAN 2.5 MG TAB (ELIQUIS) PO SCH ×2 (09:37→20:56)
[2021-03-19] MEDS: DIGOXIN 0.125 MG TAB PO SCH (09:37)
[2021-03-19 12:00] VITALS: BP 129/83
[2021-03-19 16:00] VITALS: BP_SYST 128; BP_SYST 148; BP_DIAS 75; BP_DIAS 82
[2021-03-19 20:00] VITALS: BP 150/74
[2021-03-19] MEDS: DONEPEZIL 5 MG TAB PO SCH (20:56)
[2021-03-20] VITALS: BP 146/77
[2021-03-20] MEDS: METOPROLOL TART 25 MG TABLET PO SCH ×4 (01:57→21:02)
[2021-03-20 04:00] VITALS: BP 154/72
[2021-03-20 05:18] LABS: BASO % 0.5 % (0.0-1.0); EOS # 0.6 10^3/uL (0.0-0.5); EOS % 7.6 % (0.0-3.0); HEMATOCRIT 36.4 % (36.0-47.0); HEMOGLOBIN 11.4 g/dl (12.0-15.5); LYMPH # 1.1 10^3/uL (1.5-5.0); LYMPH % 13.1 % (24.0-44.0); MEAN CORPUSCULAR HEMOGLOBIN 28.8 pg (27.0-33.0); MEAN CORPUSCULAR HGB CONC 31.3 g/dl (32.0-36.5); MEAN CORPUSCULAR VOLUME 91.9 fl (80.0-96.0); MONO # 0.5 10^3/uL (0.0-0.8); MONO % 5.9 % (2.0-8.0); NEUTROPHILS # 5.9 10^3/uL (1.5-8.5); NEUTROPHILS % 72.2 % (36.0-66.0); PLATELET COUNT, AUTOMATED 256 10^3/uL (150-450); RED BLOOD COUNT 3.96 10^6/uL (4.00-5.40); WHITE BLOOD COUNT 8.1 10^3/uL (4.0-10.0)
[2021-03-20 05:36] LABS: BLOOD UREA NITROGEN 4 MG/DL (7-18); CALCIUM LEVEL 9.4 MG/DL (8.8-10.2); CARBON DIOXIDE LEVEL 24 MEQ/L (21-32); CHLORIDE LEVEL 113 MEQ/L (98-107); CREATININE FOR GFR 0.61 MG/DL (0.55-1.30); GLOMERULAR FILTRATION RATE > 60.0 (>32); GLUCOSE, FASTING 86 MG/DL (70-100); POTASSIUM SERUM 4.2 MEQ/L (3.5-5.1); SODIUM LEVEL 141 MEQ/L (136-145)
[2021-03-20] MEDS: VANCOMYCIN ORAL SOL 250MG/5ML ORAL SYRINGE PO SCH ×2 (06:30→12:00)
[2021-03-20 08:00] VITALS: BP 164/82
[2021-03-20] MEDS: KCL 40MEQ in NS 1000ML 1,000 ML IV SCH ×2 (09:02→10:07)
[2021-03-20] MEDS: APIXABAN 2.5 MG TAB (ELIQUIS) PO SCH ×2 (09:07→21:02)
[2021-03-20] MEDS: DIGOXIN 0.125 MG TAB PO SCH (09:07)
--- NOTE | 2021-03-20 11:02 | IPNPDOC ---
Subjective Date Seen The patient was seen on 03/20/21. Subjective Chief Complaint/HPI Very pleasant and oriented x 2 . Reports that did not have to get up at night as much as the night before. Reports feeling stronger, good appetite and keeping everything down. Still having the cramps then has to cutler to the bathroom. Remains in Afib though the pulse rate is getting slower. Objective Physical Examination General Exam: Positive: Alert, Cooperative, No Acute Distress, Other (confused) Eye Exam: Positive: PERRLA, Conjunctiva & lids normal, EOMI; Negative: Sclera icteric ENT Exam: Positive: Atraumatic Neck Exam: Positive: Supple; Negative: JVD, thyromegaly Chest Exam: Positive: Clear to auscultation, Normal air movement Heart Exam: Positive: Tachycardic, Irregular Rhythm, Normal S1, Normal S2; Negative: Murmurs, Rubs Telemetry: Positive: Atrial fibrillation Abdomen Exam: Positive: BS Hyperactive, Soft; Negative: Tenderness, Hepatospenomegaly Extremity Exam: Positive: Edema (2 +); Negative: Clubbing, Cyanosis Neuro Exam: Positive: Normal Speech, Strength at 5/5 X4 ext, Normal Tone Assessment /Plan Assessment 80-year-old female with past medical history of dementia, paroxysmal atrial fibrillation, hypertension, hyperlipidemia, sleep apnea on CPAP, orthostatic hypotension, vasovagal syncope presented to the emergency room for more than one month history of crampy abdominal pain and diarrhea. She also complained of dizziness, weakness, malaise and overall not feeling well. Of note she was hospitalized twice in [place] in January for UTI and Sepsis. Received 10 days of levo and second time 7 days of cefdinir. She also recieved clindamycin for 7 days in November. Recieved antibioitcs in Sep and Aug of last year also for urine infections. She is now again on Bactrim. The diarrhea started in the end of January. She came back to [place] on 02/14/21. She got her second COVID vaccine 2 weeks ago here and the first one was in [place]. There was some delay in the second one due to the diarrhea. She went to see her PMD at [facility] yesterday and had a GI panel done which is positive for C. difficile. In the ED, patient was noted to be in Afib with RVR with a pulse ranging from 120s to 160s. She was also hypokalemic. Patient was admitted for C Diff colitis, Noro virus diarrhea , dehydration, hypokalemia and A. fib with RVR. C diff colitis and Norovirus diarrhea. Diarrhea continues but seems to be a little less and also thicker as per nurses. CT abdomen and pelvis shows: long segment wall thickening involving portions of the descending and sigmoid colon, most likely multifocal colitis, which could be infectious, inflammatory, or ischemic. Adjacent fat stranding and small amount of ascites. There are multiple sigmoid diverticula without definite focal features of diverticulitis. Had 2 courses of antibiotics in January in [place] Levofloxacin and Cefdinir both for Uti/ Sepsis. She was positive for c diff on 02/13/21 when she was given 10 days of vancomycin. Diarrhea did get a little better but did not stop completely. It again worsened in the past 2 weeks. She has again been on Bactrim for a UTI for the week before admission to hospital C diff still positive on 03/16/21 PO vancomycin second course. isolation ID consult. Dehydration continue IVF Hypokalemia replaced. Afib with RVR receiving dig and metoprolol, eliquis. Patient is also on diltiazem 30 tid ( takes only twice). However as bp is soft giving digoxin. Patient used to be on Flecainide 50 bid but it was discontinued after one of the hospitalizations in [place]. pulse is slowing down. Dementia will continue donepezil Has h/o orthostatic hypotension will hold midodrine as this can elevate heart rate. Also Bp is better at present. Calcified gallbladder wall Will need regular follow-up as this may predispose to gallbladder cancer Plan/VTE VTE Prophylaxis Ordered?: Yes VS, I&O, 24H, Fishbone Vital Signs/I&O Vital Signs Date Time Temp Pulse Resp B/P (MAP) Pulse Ox O2 Delivery O2 Flow Rate FiO2 03/20/21 09:07 114 03/20/21 09:07 164/82 03/20/21 08:00 96.7 18 97 Room Air I&O- Last 24 Hours up to 6 AM 03/20/21 05:59 Intake Total 2300 ml Output Total 200 ml Balance 2100 ml Laboratory Data 24H LABS Laboratory Tests 2 03/20/21 04:23: Immature Granulocyte % (Auto) 0.7, Neutrophils (%) (Auto) 72.2H, Lymphocytes (%) (Auto) 13.1L, Monocytes (%) (Auto) 5.9, Eosinophils (%) (Auto) 7.6H, Basophils (%) (Auto) 0.5, Neutrophils # (Auto) 5.9, Lymphocytes # (Auto) 1.1L, Monocytes # (Auto) 0.5, Eosinophils # (Auto) 0.6H, Basophils # (Auto) 0.0, Nucleated Red Blood Cells % (auto) 0.0, Anion Gap 4L, Glomerular Filtration Rate > 60.0, Calcium Level 9.4 CBC/BMP Laboratory Tests 03/20/21 04:23 Microbiology Microbiology 03/17/21 Gastrointestinal Tract Panel (PCR) - Final, Complete Clostridium Difficile A/B Norovirus 03/17/21 Respiratory Virus Panel (PCR) ([facility]ORENA) - Final, Complete SANNA CLEANING MD March 20, 2021 11:02
[2021-03-20 12:00] VITALS: BP 128/81
[2021-03-20 16:00] VITALS: BP_SYST 128; BP_SYST 144; BP_DIAS 78; BP_DIAS 81
[2021-03-20] MEDS: LACTOBACILLUS ACIDOPHILUS CAP (BACID) PO SCH (18:38)
[2021-03-20 20:00] VITALS: BP 139/72
[2021-03-20] MEDS: DONEPEZIL 5 MG TAB PO SCH (21:02)
[2021-03-20] MEDS: FIDAXOMICIN 200 MG TAB (DIFICID) PO SCH (21:02)
[2021-03-21] VITALS: BP 160/88
[2021-03-21] MEDS: METOPROLOL TART 25 MG TABLET PO SCH (01:07)
[2021-03-21] MEDS: KCL 40MEQ in NS 1000ML 1,000 ML IV SCH (03:49)
[2021-03-21 04:00] VITALS: BP 142/86
[2021-03-21 05:45] LABS: BASO % 0.4 % (0.0-1.0); EOS # 0.5 10^3/uL (0.0-0.5); EOS % 6.4 % (0.0-3.0); HEMATOCRIT 40.3 % (36.0-47.0); HEMOGLOBIN 12.7 g/dl (12.0-15.5); LYMPH # 1.4 10^3/uL (1.5-5.0); LYMPH % 19.9 % (24.0-44.0); MEAN CORPUSCULAR HEMOGLOBIN 28.8 pg (27.0-33.0); MEAN CORPUSCULAR HGB CONC 31.5 g/dl (32.0-36.5); MEAN CORPUSCULAR VOLUME 91.4 fl (80.0-96.0); MONO # 0.5 10^3/uL (0.0-0.8); MONO % 7.2 % (2.0-8.0); NEUTROPHILS # 4.6 10^3/uL (1.5-8.5); NEUTROPHILS % 64.5 % (36.0-66.0); PLATELET COUNT, AUTOMATED 284 10^3/uL (150-450); RED BLOOD COUNT 4.41 10^6/uL (4.00-5.40); WHITE BLOOD COUNT 7.1 10^3/uL (4.0-10.0)
[2021-03-21 06:25] LABS: BLOOD UREA NITROGEN 4 MG/DL (7-18); CALCIUM LEVEL 9.4 MG/DL (8.8-10.2); CARBON DIOXIDE LEVEL 28 MEQ/L (21-32); CHLORIDE LEVEL 110 MEQ/L (98-107); CREATININE FOR GFR 0.67 MG/DL (0.55-1.30); DIGOXIN LEVEL 1.1 NG/ML (0.5-2.0); GLOMERULAR FILTRATION RATE > 60.0 (>32); GLUCOSE, FASTING 92 MG/DL (70-100); POTASSIUM SERUM 4.1 MEQ/L (3.5-5.1); SODIUM LEVEL 140 MEQ/L (136-145)
[2021-03-21 07:15] VITALS: BP 120/80
[2021-03-21] MEDS ORDERED: atenoloL 25 MG TAB PO ONE (07:40)
[2021-03-21] MEDS ORDERED: METOPROLOL 5 MG/5 ML VIAL IV STA (07:44)
[2021-03-21] MEDS ORDERED: PILL CUTTER 1 EACH XX PRN (08:00)
[2021-03-21] MEDS ORDERED: MIDODRINE 5 MG TAB PO SCH (08:00)
--- NOTE | 2021-03-21 08:11 | IPN ---
PROGRESS NOTE DATE: 03/21/2021 SUBJECTIVE: The patient complains of a yeast infection requesting Diflucan. She feels uncomfortable and feels that she has pruritus. She denies any dizziness or lightheadedness. No chest pain, pressure, or tightness. Still having about 7-8 loose bowel movements despite fidaxomicin. Heart rate remains 107 to 110. Blood pressure is maintained 130 to 160 systolic. The patient did not complain of any weakness or fatigue. OBJECTIVE: VITAL SIGNS: Temperature 97.7, pulse 103, respiratory rate 18, blood pressure 120/80, 97% on room air. GENERAL: Awake, alert, oriented to person, place, and time. Answering questions appropriately. Anicteric. No jaundice. No use of respiratory accessory muscles. HEENT: No JVD or thyromegaly. Moist mucous membranes. LUNGS: Clear to auscultation. No wheezing, rales, or rhonchi. HEART: S1, S2. Irregularly irregular and tachycardic. ABDOMEN: Soft, nontender, and nondistended with positive bowel sounds. EXTREMITIES: No cyanosis, clubbing, or pitting edema. LABORATORY DATA: Microbiology and imaging studies have been reviewed. ASSESSMENT AND PLAN: This is an 80-year-old female with a past medical history significant for paroxysmal atrial fibrillation, hypertension, hyperlipidemia, obstructive sleep apnea (AROLDO) on CPAP, dementia, arthritis, frequent urinary tract infections, vasovagal syncope with chronic orthostatic hypotension on chronic midodrine who presented to the emergency room with persistent diarrhea found to have Clostridium difficile and urinary tract infection present on hospital admission. Current issues are as follows: 1. C. diff colitis status post vancomycin second course currently on Dificid per infectious disease specialist recommendation and Bacid one tablet t.i.d. 2. Atrial fibrillation with rapid ventricular response (RVR) status post digoxin with level of 1.1 today. She was on metoprolol 25 mg q. 6 hourly and will change to b.i.d. dosing of long-acting Atenolol at 75 mg and intravenous (IV) metoprolol 5 mg IV q. 6 hourly for immediate control. The patient's mean arterial pressure is adequate, therefore will discontinue the patient's midodrine for now. She does not appear to be orthostatic and does not require any normal saline at this time. She is tolerating her diet well. Will monitor for electrolyte abnormalities in light of recent digoxin use. 3. Dehydration secondary to C. diff colitis, resolved. Tolerating her diet well. Discontinued IV fluids. 4. Dementia. Continued on donepezil. 5. History of orthostatic hypotension currently with systolic pressure of 140 to 160. This has been discontinued. 6. Vaginal candidiasis-diflucan renally dosed x 3days Disposition: The patient may be transferred to medical surgical floor with telemetry monitoring. MTDD
[2021-03-21] MEDS: APIXABAN 2.5 MG TAB (ELIQUIS) PO SCH ×2 (08:21→20:10)
[2021-03-21] MEDS: FIDAXOMICIN 200 MG TAB (DIFICID) PO SCH ×2 (08:21→20:10)
[2021-03-21] MEDS ORDERED: FLUCONAZOLE 50MG TABLET PO SCH (09:00)
[2021-03-21] MEDS: FLUCONAZOLE 50MG TABLET PO SCH (10:01)
--- NOTE | 2021-03-21 11:46 | CR ---
CONSULTATION DATE: 03/20/2021 REASON FOR CONSULTATION: I was asked to consult by Audra Randolph MD for recurrent C. difficile colitis. HISTORY OF PRESENT ILLNESS: Mrs. Nguyen is a pleasant, 80-year-old female who was admitted to [facility] on March 17 with complaint of recurrent diarrhea associated with crampy abdominal pain. The patient was also noted to be hypokalemic, dehydration and had atrial fibrillation with rapid ventricular response. The patient was placed in PCU on telemetry, given IV fluids and started on p.o. vancomycin for C. difficile diarrhea. The patient's history dates back to February 07 when she got sick along with her in [place]. Her was sick for 24 hours and she was sick for a little longer with diarrhea with diarrhea and vomiting. She was seen in the emergency room, was evaluated and discharged within 24 hours. The patient had received antibiotics with clindamycin. I am not sure what the reason for that antibiotic was with her diarrhea and she came back four days later on February 12, admitted to hospital on February 16 and diagnosed at that time with C. difficile colitis and norovirus infection. The patient was given vancomycin at a dose of 125 mg p.o. q.i.d. She received a 10 day course from 02/12 until 02/23 that she finished. In the meantime, she also had recently received a course of Bactrim double strength, one tablet p.o. b.i.d. for urinary tract infection. She was complaining of dysuria. She is not able to tell me who gave her that prescription. She was seen at urology by Alpa Goel NP on 03/09 and she was given an appointment as needed. She had a cystoscopy in October of 2020 for recurrent urinary tract infection. She had documented E.coli UTI at least four times in 2019 and that was negative. For review of her previous medication, the patient has received many courses of antibiotics, some for urinary tract infection including cefdinir, Bactrim, clindamycin. MEDICATIONS: 1. Vancomycin 125 mg p.o. q.6 hours. 2. Aricept 5 mg p.o. q.h.s. 3. Apixaban 2.5 mg p.o. b.i.d. 4. IV potassium. 5. Digoxin 0.125 mg p.o. daily. 6. Metoprolol 25 mg p.o. q.6 hours. 7. Probiotics one tablet p.o. daily. PAST MEDICAL HISTORY: 1. Recurrent urinary tract infection, E. coli. 2. Basal cell carcinoma of the left jaw in 2010. 3. Atrial fibrillation. 4. Hyperlipidemia. 5. Osteoarthritis. 6. Sleep apnea. 7. Hypertension. 8. Obstructive sleep apnea on CPAP. 9. Dementia. PAST SURGICAL HISTORY: 1. Left knee replacement in 2008. 2. Appendectomy. 3. Colonoscopy. 4. Basal cell carcinoma removal. FAMILY HISTORY: Mother at the age of 90 from lymphoma and Dad at 78 from colon cancer. Her sister had ovarian cancer and another sister has breast cancer. SOCIAL HISTORY: She lives with her . They have been since 1962. They spend three months in [place] in the winter and they live in [place]. She does not smoke, drink or use alcohol. REVIEW OF SYSTEMS: She complains of being fatigued, weak, denies any nausea or vomiting but has diarrhea and abdominal cramps which have improved. She had some incontinence. She does not have any dysuria currently or frequency. She does not have any flank pain, no rashes. The patient does have memory issues and looks at her for answers whenever she is questioned. PHYSICAL EXAMINATION: Vital Signs: Temperature is 96.4, pulse 110, irregular, respiratory rate 18, blood pressure 122/81, O2 sat 95% on room air. Heart: Normal S1, S2, irregularly irregular. no murmurs appreciated. Lungs: Clear. No wheezes, rales or rhonchi. Back: No CVA or lumbosacral tenderness. Extremities: No clubbing, cyanosis or edema, no calf tenderness or onychomycosis x10. Skin: No rashes. Head and ENT: Pupils equal and reactive, anicteric. Oropharynx is clear with no thrush and no lesions. LABORATORY DATA: White count 8.1, hemoglobin 11.4, hematocrit 36.4, platelets 256, 72% neutrophils, 13% lymphocytes, 6% monocytes. White count on admission was 12.4, sodium 141, potassium 4.2, chloride 113, bicarbonate 24, BUN 4, creatinine 0.61, glucose 86, calcium 9.4, AST 18, ALT 15, alk phos 65, CPK 40, lipase 109. Respiratory panel was negative. GI panel was positive for C. difficile and norovirus. IMAGING: CT of abdomen and pelvis showed diffuse fatty liver changes, minimal, questionable tiny gallstones in the gallbladder with minimal calcification of gallbladder wall, no bile duct dilatation. Descending and sigmoid colon colitis with adjacent fat stranding and some ascites with multiple sigmoid diverticula without diverticulitis. IMPRESSION: This is an 80-year-old female with a history of recurrent urinary tract infection, recent diagnosis of Norovirus most likely February 07 followed by C. difficile colitis February 12, treated with p.o. vancomycin for ten days with improvement. The patient received more antibiotics for urinary tract infection, most recently Bactrim and had a relapse of C. difficile colitis. The patient still has norovirus on her stool specimen, was probably from previous infection in January as the had a similar infection within the same time. She has responded to p.o. vancomycin but would definitely benefit from fidaxomicin as it has lower risk of recurrence and she has already been treated with once course of vancomycin. PLAN: 1. Discontinue p.o. vancomycin, start fidaxomicin 200 mg p.o. b.i.d. for ten days. Consult PFS for IV Zinplava to decrease her risk of second recurrence. As this is already her first recurrence, she would need a dose of 750 mg IV x1 dose that could be given after discharge. We will need to get prior authorization from her insurance. 2. Start probiotics. The patient uses Culturelle at home twice a day. The patient's has some at home. From an infectious disease standpoint, the patient could be discharged. LYNNE
[2021-03-21] MEDS ORDERED: METOPROLOL 5 MG/5 ML VIAL IV SCH (12:00)
[2021-03-21 12:27] VITALS: BP 136/80
[2021-03-21] MEDS: LACTOBACILLUS ACIDOPHILUS CAP (BACID) PO SCH (12:44)
--- NOTE | 2021-03-21 18:50 | IPN ---
PROGRESS NOTE DATE: 03/21/2021 SUBJECTIVE: Mrs. Nguyen feels much better. She still has soft stools, but she does not have any incontinence. She has no urinary symptoms, dysuria, or hematuria. No flank pain. She has some abdominal cramps before she has to go to the bathroom. She had a total of three incontinent bowel movements yesterday, total of 10, today only five bowel movements. OBJECTIVE: VITAL SIGNS: Temperature 97.7, pulse 94, respirations 18, blood pressure 136/80, O2 sat 97% on room air. HEART: Normal S1, S2. No murmurs. LUNGS: Clear. No wheezes, rales, or rhonchi. ABDOMEN: Soft, nontender. Bowel sounds present. No hepatosplenomegaly. EXTREMITIES: No edema. LABORATORY DATA: White count 7.1, hemoglobin 12.7, hematocrit 40.3, platelets 284,000, neutrophils 65%, lymphocytes 20%, monocytes 7%. Sodium 140, potassium 4.1, chloride 110, bicarb 28, BUN 4, creatinine 0.67, glucose 92, calcium 9.4. Stool C. diff was positive and norovirus. IMPRESSION AND PLAN: Recurrent Clostridium difficile colitis after being treated with vancomycin for a total of 10 days. The patient will be treated with 10 days of Dificid 200 mg p.o. b.i.d. She will continue with probiotics one tablet p.o. b.i.d. Advised by her she has Culturelle at home. She will be receiving an outpatient infusion of IV Zinplava 750 mg x1 dose at the infusion unit to prevent recurrence of C. difficile. Continue Hiprex for recurrent urinary tract infection and increase water intake. The patient may also may benefit from estrogen vaginal cream to decrease the rate of recurrent urinary tract infection.
[2021-03-21 19:59] VITALS: BP 145/89
[2021-03-21] MEDS: DONEPEZIL 5 MG TAB PO SCH (20:10)
[2021-03-21] MEDS ORDERED: atenoloL 50 MG TAB PO SCH (21:00)
[2021-03-22 04:00] VITALS: BP 134/83
[2021-03-22 05:18] LABS: BASO # 0.1 10^3/uL (0.0-0.2); BASO % 0.9 % (0.0-1.0); EOS # 0.3 10^3/uL (0.0-0.5); EOS % 6.1 % (0.0-3.0); HEMATOCRIT 38.7 % (36.0-47.0); HEMOGLOBIN 12.4 g/dl (12.0-15.5); LYMPH # 1.2 10^3/uL (1.5-5.0); LYMPH % 21.3 % (24.0-44.0); MEAN CORPUSCULAR VOLUME 90.6 fl (80.0-96.0); MONO # 0.5 10^3/uL (0.0-0.8); MONO % 8.2 % (2.0-8.0); NEUTROPHILS # 3.4 10^3/uL (1.5-8.5); NEUTROPHILS % 61.4 % (36.0-66.0); PLATELET COUNT, AUTOMATED 297 10^3/uL (150-450); RED BLOOD COUNT 4.27 10^6/uL (4.00-5.40); WHITE BLOOD COUNT 5.6 10^3/uL (4.0-10.0)
[2021-03-22] MEDS ORDERED: atenoloL 50 MG TAB PO ONE (05:25)
[2021-03-22] MEDS ORDERED: RISATAB3 PO (05:28)
[2021-03-22] MEDS ORDERED: DIFI200T PO (05:28)
[2021-03-22] MEDS ORDERED: DIFL50TA PO (05:28)
[2021-03-22] MEDS ORDERED: CLOTR1CR TOP (05:28)
[2021-03-22] MEDS ORDERED: ATEN100T PO (05:30)
[2021-03-22] MEDS ORDERED: SELF1KIT MC (05:30)
[2021-03-22 05:31] LABS: BLOOD UREA NITROGEN 5 MG/DL (7-18); CALCIUM LEVEL 9.6 MG/DL (8.8-10.2); CARBON DIOXIDE LEVEL 30 MEQ/L (21-32); CHLORIDE LEVEL 109 MEQ/L (98-107); CREATININE FOR GFR 0.73 MG/DL (0.55-1.30); GLOMERULAR FILTRATION RATE > 60.0 (>32); GLUCOSE, FASTING 104 MG/DL (70-100); POTASSIUM SERUM 3.8 MEQ/L (3.5-5.1); SODIUM LEVEL 143 MEQ/L (136-145)
[2021-03-22] MEDS ORDERED: BACI1CAP PO (05:32)
[2021-03-22 05:42] VITALS: BP 134/83
[2021-03-22 07:51] VITALS: BP 126/64
[2021-03-22] MEDS: FIDAXOMICIN 200 MG TAB (DIFICID) PO SCH (08:45)
[2021-03-22] MEDS: APIXABAN 2.5 MG TAB (ELIQUIS) PO SCH (08:45)
[2021-03-22] MEDS: FLUCONAZOLE 50MG TABLET PO SCH (08:46)
[2021-03-22] MEDS ORDERED: CLOTRIMAZOLE 1% TOPICAL CREAM 30GM TOP SCH (09:00)
[2021-03-22 12:00] VITALS: BP 128/71
[2021-03-22] MEDS: LACTOBACILLUS ACIDOPHILUS CAP (BACID) PO SCH (12:26)
--- NOTE | 2021-03-22 13:08 | DSES ---
DISCHARGE SUMMARY DATE OF ADMISSION: 03/17/2021 DATE OF DISCHARGE: 03/22/2021 CLIENT FINANCE ANALYST DURING THIS ADMISSION: Infectious disease specialist, Henny Owusu M.D. DISCHARGE INSTRUCTIONS: Patient is to receive intravenous (IV) infusion of Zinplava 750 mg IV times one after hospital discharge at the infusion unit, continue Hiprex for recurrent urinary tract infections (UTIs) and increase water intake. Patient is to have probiotics one tablet twice a day and Culturelle at home, estrogen vaginal cream to decrease risk of recurrent urinary tract infection and, for vaginal candidiasis, complete a full three days of Diflucan. Patient will need to have a repeat ultrasound of the gallbladder regarding calcified gallbladder wall to rule out gallbladder cancer. DISCHARGE DIAGNOSIS: 1. Atrial fibrillation with rapid ventricular response. 2. Clostridium (C) difficile colitis, failed on vancomycin and now on Dificid. 3. Dehydration due to Clostridium (C) difficile colitis. 4. Dementia. 5. Orthostatic hypotension. 6. Vaginal candidiasis. 7. Recent urinary tract infection. 8. Hypokalemia secondary to dehydration from Clostridium (C) difficile diarrhea. 9. Calcified gallbladder wall. 10. Norovirus diarrhea. DISCHARGE MEDICATIONS: - Dificid 200 mg twice a day for 10 days - clotrimazole vaginal topical cream twice a day for five days - atenolol 100 mg daily - Bacid one tablet by mouth twice a day with meals - fluconazole 75 mg for two days - Eliquis 2.5 mg twice a day - calcium with vitamin D one tablet daily - donepezil 5 mg at bedtime - memantine one capsule daily - midodrine 5 mg twice a day - pravastatin 10 mg daily HOSPITAL COURSE: This is an 80-year-old female with history of atrial fibrillation, paroxysmal hypertension, hyperlipidemia, obstructive sleep apnea (AROLDO) on continuous positive airway pressure (CPAP), dementia, arthritis, frequent urinary tract infections, vasovagal syncope with chronic orthostatic hypotension on chronic midodrine, presented to the emergency room (ER) with persistent diarrhea, found to have Clostridium (C) difficile, failed on vancomycin, and a urinary tract infection recently. Patient was given Dificid 200 mg by mouth twice a day and Bacid with meals. She was found to have atrial fibrillation with rapid ventricular response with rate of 120-130, treated with digoxin/metoprolol 25 mg every 6 hours with no significant improvement, given atenolol 75 mg twice a day with rate control and IV metoprolol every 6 hours with adequate systolic blood pressure. Patient's digoxin level after one day of admission was 1.1. She was changed to atenolol 100 mg daily with control of her heart rate. Ventricular rate in the 80s with blood pressure well-maintained with systolic blood pressure in the 120s-130s. Patient improved on Dificid and had no recurrent diarrhea. She was instructed to receive IV Zinplava prior to hospital discharge with arrangement for outpatient infusion by [facility] social work. Patient complained of vaginal candidiasis, was given three days of oral Diflucan and vaginal clotrimazole. PHYSICAL EXAMINATION ON DISCHARGE: Temperature 96, pulse 87, respiratory rate 20, blood pressure 126/64, 97% on room air. GENERAL: Patient is awake, alert, oriented to person, place and time, answering questions appropriately. LUNGS: Clear to auscultation. No wheezing, rales or rhonchi. HEART: S1, S2. Sinus rhythm. ABDOMEN: Soft, nontender, nondistended. Positive bowel sounds. EXTREMITIES: No cyanosis, clubbing or any pitting edema. LABORATORY DATA ON DISCHARGE: White count 5.6, hemoglobin 12, hematocrit 38, platelet count 297. Sodium 143, potassium 3.8, chloride 109, bicarbonate 30, BUN 5, creatinine 0.73, glucose 104. Norovirus and Clostridium (C) difficile noted on 03/17/2021. Respiratory panel negative. CT abdomen and pelvis 03/17/2021: Relatively long segment wall thickening involving descending sigmoid, multifocal colitis, questionable tiny gallstones in gallbladder, but maybe minimal calcification in gallbladder wall which can be predisposed to gallbladder cancer, minimal diffuse fatty liver change. TIME SPENT ON DISCHARGE: 30 minutes.
== END 2021-03-22 14:48 | disposition home health service (06) | DRG 373 ==
LOC: M ED 13:39 → M ED INP 17:08 → ENRESERV 18:43 → M PCU 19:08
PROVIDERS: ADMIT Internal Medicine Nephrology; ATTEND General Practice
DX: A04.72 Enterocolitis due to Clostridium difficile, not specified as recurrent (principal); I48.0 Paroxysmal atrial fibrillation; B37.3 Candidiasis of vulva and vagina; B34.8 Other viral infections of unspecified site; E86.0 Dehydration; F03.90 Unspecified dementia, unspecified severity, without behavioral disturbance, psychotic disturbance, mood disturbance, and anxiety; I95.1 Orthostatic hypotension; E87.6 Hypokalemia; Z79.899 Other long term (current) drug therapy; I10 Essential (primary) hypertension; G47.33 Obstructive sleep apnea (adult) (pediatric); M19.90 Unspecified osteoarthritis, unspecified site; Z96.652 Presence of left artificial knee joint

== ENCOUNTER → 2021-03-22 | Outpatient (CLI) | payer MEDICARE, BC, OTHER ==
[~2021-03-22] VITALS: Ht 167.6 cm; Wt 71.7 kg
[~2021-03-22] MED LIST changes: +ATEN100T PO; +BACI1CAP PO; +BACTDSTA PO; +BEZLOTOXUMAB 750 MG in NS 100 ML IV ONE; +CALCD50TA PO; +CLOTR1CR TOP; +DIFI200T PO; +DIFL50TA PO; +DONE5TAB82 PO; +ELIQ2.5T PO; +MEMA1PAK PO; +METO1TAB32 PO; +RISATAB3 PO; +SELF1KIT MC
[2021-03-22 14:57] VITALS: BP 136/78
[2021-03-22 16:24] VITALS: BP 139/80
== END ==
LOC: M INFU 10:00
PROVIDERS: ATTEND Internal Medicine Infectious Disease
DX: A04.71 Enterocolitis due to Clostridium difficile, recurrent (principal); Z88.0 Allergy status to penicillin
CPT/HCPCS: 96365; J0565

== ENCOUNTER → 2021-04-17 | Outpatient (CLI) | payer MEDICARE, BC, OTHER ==
[~2021-04-17] MED LIST changes: -BEZLOTOXUMAB 750 MG in NS 100 ML IV ONE
--- NOTE | 2021-04-17 12:51 | REP ---
INDICATION: RUQ PAIN - PT ALSO HS [facility] CT. COMPARISON: Ultrasound [facility] 04/13/2021. TECHNIQUE: Real-time sonographic evaluation of ABDOMEN performed. FINDINGS: Gallbladder is contracted and contains innumerable calculi. There is no definite gallbladder wall thickening. There is no pericholecystic fluid.. There is no intrahepatic biliary dilatation. The common bile duct is upper limits of normal to slightly dilated, maximum diameter is 7-8 mm. The liver demonstrates homogeneous echotexture with no gross mass. The pancreas demonstrates homogeneous echotexture with no gross mass. Spleen is normal in size with no intrinsic abnormality, measuring 8.4 cm in length. There is no evidence of hydronephrosis, cyst, mass, or calculus in either kidney. The right kidney measures 9.8 x 5.1 x 4.5 cm. Left renal dimensions are 10.1 x 4.3 x 4.7 cm. The abdominal aorta is normal in caliber with no aneurysm. No free fluid is seen. IMPRESSION: Contracted gallbladder with multiple intraluminal calculi. No gallbladder wall thickening or free fluid. Common bile duct upper limits of normal to slightly dilated, measuring 7-8 mm. <Electronically signed by Jordan Martin > 04/17/21 [id number]
== END ==
LOC: M RAD 10:05
PROVIDERS: ATTEND Surgery
DX: K80.80 Other cholelithiasis without obstruction (principal)

== ENCOUNTER → 2021-05-27 | Outpatient (CLI) | payer MEDICARE, BC, OTHER ==
[~2021-05-27] MED LIST changes: +METO1TAB32
== END ==
LOC: M LABSMTC 11:22
PROVIDERS: ATTEND Anesthesiology
DX: Z01.818 Encounter for other preprocedural examination (principal); Z11.52 Encounter for screening for COVID-19

== ENCOUNTER → 2021-06-05 | Outpatient (CLI) | payer MEDICARE, BC, OTHER | LOC: M LABSMTC 10:06 | PROVIDERS: ATTEND Anesthesiology | DX: Z01.812 Encounter for preprocedural laboratory examination (principal); Z20.822 Contact with and (suspected) exposure to COVID-19 ==

== ENCOUNTER 2021-06-09 13:02 | Day surgery (SDC) | payer MEDICARE, BC, OTHER ==
[~2021-06-09] VITALS: Ht 172.7 cm; Wt 68.7 kg
[~2021-06-09 13:02] MED LIST changes: +FECAL MICROBIOTA PREPARATION 250 ML BTL (J3590) XX ONE; +NS 1,000 ML IV ONE
[2021-06-09] MEDS ORDERED: propofoL 200 MG/20 ML VIAL As Ordered ONE (13:34)
[2021-06-09] MEDS ORDERED: LIDOCAINE 2% 100MG/5ML SDV (FOR ANES.) As Ordered ONE (13:34)
--- NOTE | 2021-06-09 15:04 | ROOR ---
Patient Name: Nettie Nguyen Procedure Date: 06/09/2021 2:22 PM Date of : 1940 Age: 80 Room: [facility] Gender: Female Note Status: Finalized Procedure: Colonoscopy Indications: Fecal transplant for treatment of recurrent Clostridium difficile diarrhea Providers: Ubaldo Pedro MD Referring MD: Flora Snowden Np Requesting Provider: Medicines: Monitored Anesthesia Care Complications: No immediate complications. Procedure: Pre-Anesthesia Assessment: - The heart rate, respiratory rate, oxygen saturations, blood pressure, adequacy of pulmonary ventilation, and response to care were monitored throughout the procedure. The Colonoscope was introduced through the anus and advanced to the cecum, identified by appendiceal orifice and ileocecal valve. The colonoscopy was performed without difficulty. The patient tolerated the procedure well. The quality of the bowel preparation was adequate. Findings: The perianal and digital rectal examinations were normal. Multiple small and large-mouthed diverticula were found in the sigmoid colon and descending colon. There was narrowing of the colon in association with the diverticular opening. A 6 mm polyp was found in the ileocecal valve. The polyp was semi-sessile. The polyp was removed with a cold snare. Resection and retrieval were complete. To prevent bleeding after the polypectomy, two hemostatic clips were successfully placed. The decision was made to proceed with fecal microbiota transplant (bacteriotherapy). Donor stool was supplied by [employer] (purchased frozen stool), Donor/Unit ID # [id number], as per protocol. Approximately 250 mL of the donor stool was instilled in the cecum. A detailed colonoscopic exam could not be performed upon scope withdrawal secondary to limited visibility from the instilled stool. This precludes the ability to screen for colon cancer, and the patient was made aware of this prior to the procedure. Impression: - A detailed colonoscopic exam could not be performed upon scope withdrawal secondary to limited visibility from the instilled stool. This precludes the ability to screen for colon cancer, and the patient was made aware of this prior to the procedure. - Fecal Microbiota Transplant (Bacteriotherapy) performed in the cecum. - Incidental: Severe diverticulosis in the sigmoid colon and in the descending colon. There was narrowing of the colon in association with the diverticular opening. One 6 mm polyp at the ileocecal valve, removed with a cold snare. Resected and retrieved. Clips were placed. Recommendation: - Telephone endoscopist if symptomatic. - I did see a polyp and removed it. However this exam today is very limited for puposes of screening for colon polyps and cancer.I recommend a detailed repeat colonoscopy at the next available appointment. - Return to my office in 1 - 2 months. - To discuss todays findings, my office will call you in the next few days to schedule a follow up appointment. Procedure Code(s): --- Professional --- 68452, Colonoscopy, flexible; with removal of tumor(s), polyp(s), or other lesion(s) by snare technique 21005, Preparation of fecal microbiota for instillation, including assessment of donor specimen Diagnosis Code(s): --- Professional --- K57.30, Diverticulosis of large intestine without perforation or abscess without bleeding A04.71, Enterocolitis due to Clostridium difficile, recurrent K63.5, Polyp of colon CPT copyright 2019 [employer] [employer]. All rights reserved. The codes documented in this report are preliminary and upon integrated marketing intern review may be revised to meet current compliance requirements. Ubaldo Pedro MD Ubaldo Pedro MD 06/09/2021 3:03:42 PM Electronically signed by Ubaldo Pedro MD Number of Addenda: 0 Note Initiated On: 06/09/2021 2:22 PM Estimated Blood Loss: Estimated blood loss: none.
[2021-06-09 15:32] VITALS: BP 143/85
== END 2021-06-09 16:07 | disposition home or self-care (01) ==
LOC: M OPP 13:02
PROVIDERS: ATTEND Internal Medicine Gastroenterology
DX: A04.71 Enterocolitis due to Clostridium difficile, recurrent (principal); D12.6 Benign neoplasm of colon, unspecified; K57.30 Diverticulosis of large intestine without perforation or abscess without bleeding; Z79.899 Other long term (current) drug therapy; Z88.0 Allergy status to penicillin
CPT/HCPCS: 88305; G0455

== ENCOUNTER → 2021-07-10 | Outpatient (REF) | payer MEDICARE, BC, OTHER ==
[~2021-07-10] MED LIST changes: -FECAL MICROBIOTA PREPARATION 250 ML BTL (J3590) XX ONE; -NS 1,000 ML IV ONE
[2021-07-10 14:37] LABS: APPEARANCE, URINE CLOUDY (CLEAR); BACTERIA, URINE AUTO 1+ (NEGATIVE); BILIRUBIN, URINE AUTO NEGATIVE (NEGATIVE); BLOOD, URINE BLOOD 3+ (NEGATIVE); COLOR, URINE YELLOW (YELLOW); GLUCOSE, URINE (UA) AUTO NEGATIVE (NEGATIVE); KETONE, URINE AUTO NEGATIVE (NEGATIVE); LEUKOCYTE ESTERASE, URINE AUTO 3+ (NEGATIVE); MUCUS, URINE MODERATE (NEGATIVE); NITRITE, URINE AUTO NEGATIVE (NEGATIVE); PROTEIN, URINE AUTO 2+ mg/dL (NEGATIVE); RBC, URINE AUTO TNTC /HPF (0-3); SPECIFIC GRAVITY URINE AUTO 1.018 (1.002-1.035); SQUAMOUS EPITHELIAL CELL UR AU 22 /HPF (0-6); TRANSITIONAL EPITHELIAL AUTO 2 /HPF; UROBILINOGEN, URINE AUTO 0.2 mg/dL (0.0-2.0); WBC, URINE AUTO 104 /HPF (0-3)
== END ==
LOC: M SMT 13:28
PROVIDERS: ATTEND Nurse Practitioner Women's Health
DX: R30.0 Dysuria (principal)
CPT/HCPCS: 81001; 87086; G0463

== ENCOUNTER → 2022-06-15 | Outpatient (CLI) | payer MEDICARE, BC, OTHER ==
[2022-06-15 16:45] LABS: BLOOD UREA NITROGEN 21 MG/DL (7-18); CALCIUM LEVEL 9.7 MG/DL (8.8-10.2); CARBON DIOXIDE LEVEL 32 MEQ/L (21-32); CHLORIDE LEVEL 105 MEQ/L (98-107); CREATININE FOR GFR 0.89 MG/DL (0.55-1.30); GLOMERULAR FILTRATION RATE > 60.0 (>32); GLUCOSE, FASTING 73 MG/DL (70-100); POTASSIUM SERUM 4.3 MEQ/L (3.5-5.1); SODIUM LEVEL 139 MEQ/L (136-145)
== END ==
LOC: M PLALAB 11:52
PROVIDERS: ATTEND Surgery
DX: C50.911 Malignant neoplasm of unspecified site of right female breast (principal)

== ENCOUNTER → 2022-06-21 | Outpatient (CLI) | payer MEDICARE, BC, OTHER ==
[~2022-06-21] MED LIST changes: +PROHANCE 279.3MG/ML 15ML VIAL As Ordered ONE
== END ==
LOC: M RAD 13:59
PROVIDERS: ATTEND Surgery
DX: C50.911 Malignant neoplasm of unspecified site of right female breast (principal); C50.912 Malignant neoplasm of unspecified site of left female breast
CPT/HCPCS: A9576; C8908

== ENCOUNTER → 2022-06-25 | Outpatient (CLI) | payer MEDICARE, BC, OTHER ==
[~2022-06-25] MED LIST changes: -PROHANCE 279.3MG/ML 15ML VIAL As Ordered ONE
== END ==
LOC: M PLARAD 14:19
PROVIDERS: ATTEND Nurse Practitioner Family
DX: C50.511 Malignant neoplasm of lower-outer quadrant of right female breast (principal)
CPT/HCPCS: 78815; A9552

== ENCOUNTER → 2022-06-28 | Outpatient (CLI) | payer MEDICARE, BC, OTHER ==
[~2022-06-28] MED LIST changes: +PROHANCE 279.3MG/ML 15ML VIAL As Ordered ONE
== END ==
LOC: M RAD 09:33
PROVIDERS: ATTEND Surgery
DX: C50.911 Malignant neoplasm of unspecified site of right female breast (principal)

== ENCOUNTER → 2022-07-11 | Outpatient (CLI) | payer MEDICARE, BC, OTHER ==
[~2022-07-11] MED LIST changes: +CINA30TA4 PO; +CVS1CAP5 PO; +MEMA10TA19 PO; +PRESCAP PO; -PROHANCE 279.3MG/ML 15ML VIAL As Ordered ONE; +VITA100093 PO
[2022-07-11 11:46] VITALS: BP 130/80
== END ==
LOC: M WHCPRO 10:19
PROVIDERS: ATTEND Surgery
DX: C50.212 Malignant neoplasm of upper-inner quadrant of left female breast (principal)
CPT/HCPCS: 19083; 77065; 88305; G0279

== ENCOUNTER → 2023-03-13 | Outpatient (CLI) | payer MEDICARE, BC, OTHER ==
[~2023-03-13] MED LIST changes: +LETR2.5T2 PO
== END ==
LOC: M WHC 10:01
PROVIDERS: ATTEND Nurse Practitioner Women's Health
DX: C50.912 Malignant neoplasm of unspecified site of left female breast (principal)

== ENCOUNTER → 2023-05-13 | Outpatient (REF) | payer MEDICARE, BC, OTHER ==
[~2023-05-13] MED LIST changes: +OCUVTAB4 PO
[2023-05-13 17:13] LABS: APPEARANCE, URINE MANUAL CLEAR (CLEAR); COLOR, URINE MANUAL ORANGE (YELLOW)
[2023-05-13 17:15] LABS: BILIRUBIN, URINE MANUAL OBSCURED (NEGATIVE); BLOOD URINE MANUAL OBSCURED (NEGATIVE); GLUCOSE, URINE (UA) MANUAL OBSCURED mg/dL (NEGATIVE); KETONE, URINE MANUAL OBSCURED mg/dL (NEGATIVE); LEUKOCYTE ESTERASE, URINE MAN OBSCURED (NEGATIVE); NITRITE, URINE MANUAL OBSCURED (NEGATIVE); PROTEIN, URINE MANUAL OBSCURED mg/dL (NEGATIVE); UROBILINOGEN, URINE MANUAL OBSCURED mg/dl (NORMAL)
[2023-05-13 17:26] LABS: SQUAMOUS EPITHELIAL CELL URINE LARGE AMOUNT /hpf (SMALL AMT); WBC, URINE 15-20 /hpf (0-3)
[2023-05-13 17:27] LABS: BACTERIA, URINE SMALL AMOUNT; CALCIUM OXALATE CRYSTALS,URINE MOD AMOUNT /hpf; MUCUS, URINE LARGE AMOUNT (NEGATIVE)
== END ==
LOC: M SFHCWAGY 17:02
PROVIDERS: ATTEND Nurse Practitioner Family
DX: R39.15 Urgency of urination (principal)

== ENCOUNTER → 2023-06-28 | Outpatient (REF) | payer MEDICARE, BC, OTHER ==
[2023-06-28 13:49] LABS: APPEARANCE, URINE CLOUDY (CLEAR); BACTERIA, URINE AUTO 3+ (NEGATIVE); BILIRUBIN, URINE AUTO NEGATIVE (NEGATIVE); BLOOD, URINE BLOOD 1+ (NEGATIVE); COLOR, URINE AMBER (YELLOW); GLUCOSE, URINE (UA) AUTO NEGATIVE (NEGATIVE); KETONE, URINE AUTO NEGATIVE (NEGATIVE); LEUKOCYTE ESTERASE, URINE AUTO 2+ (NEGATIVE); MUCUS, URINE MODERATE (NEGATIVE); NITRITE, URINE AUTO POSITIVE (NEGATIVE); PROTEIN, URINE AUTO 2+ mg/dL (NEGATIVE); RBC, URINE AUTO 14 /HPF (0-3); SPECIFIC GRAVITY URINE AUTO 1.023 (1.002-1.035); SQUAMOUS EPITHELIAL CELL UR AU 26 /HPF (0-6); TRANSITIONAL EPITHELIAL AUTO 3 /HPF; UROBILINOGEN, URINE AUTO 0.2 mg/dL (0.0-2.0); WBC, URINE AUTO TNTC /HPF (0-3)
== END ==
LOC: M SMT 13:13
PROVIDERS: ATTEND Physician Assistant
DX: N39.0 Urinary tract infection, site not specified (principal)

== ENCOUNTER → 2023-09-17 | Outpatient (CLI) | payer MEDICARE, BC, OTHER | LOC: M WHC 12:23 | PROVIDERS: ATTEND Internal Medicine Hematology & Oncology | DX: Z12.31 Encounter for screening mammogram for malignant neoplasm of breast (principal) ==

== ENCOUNTER 2024-01-20 20:29 | Inpatient (IN) | payer MEDICARE, BC ==
[~2024-01-20] VITALS: Ht 172.7 cm; Wt 65.9 kg
[~2024-01-20 20:29] MED LIST changes: +MEMA10TA PO; -MEMA10TA19 PO
[2024-01-20 23:17] LABS: BASO # 0.1 10^3/uL (0.0-0.2); BASO % 0.4 % (0.0-1.0); EOS # 0.2 10^3/uL (0.0-0.5); EOS % 1.7 % (0.0-3.0); HEMATOCRIT 42.2 % (36.0-47.0); HEMOGLOBIN 13.9 g/dl (12.0-15.5); LYMPH # 1.2 10^3/uL (1.5-5.0); LYMPH % 8.9 % (24.0-44.0); MEAN CORPUSCULAR HEMOGLOBIN 30.2 pg (27.0-33.0); MEAN CORPUSCULAR HGB CONC 32.9 g/dl (32.0-36.5); MEAN CORPUSCULAR VOLUME 91.7 fl (80.0-96.0); MONO # 0.7 10^3/uL (0.0-0.8); NEUTROPHILS # 11.4 10^3/uL (1.5-8.5); NEUTROPHILS % 82.9 % (36.0-66.0); WHITE BLOOD COUNT 13.8 10^3/uL (4.0-10.0)
[2024-01-20 23:31] LABS: INR 1.17; PARTIAL THROMBOPLASTIN TIME 22.7 SECONDS (24.8-34.2); PROTHROMBIN TIME 14.6 SECONDS (12.5-14.5)
[2024-01-20 23:52] LABS: PLATELET COUNT, AUTOMATED 329 10^3/uL (150-450)
[2024-01-21 00:10] LABS: ALBUMIN 3.2 G/DL (3.2-5.2); ALKALINE PHOSPHATASE 76 U/L (46-116); ALT/SGPT 10 U/L (7.0-40); AST/SGOT 16 U/L (<34); BILIRUBIN,DIRECT 0.3 MG/DL (<0.4); BILIRUBIN,TOTAL 0.8 MG/DL (0.3-1.2); BLOOD UREA NITROGEN 19 MG/DL (9-23); CALCIUM LEVEL 9.7 MG/DL (8.3-10.6); CARBON DIOXIDE LEVEL 27 MMOL/L (20-31); CHLORIDE LEVEL 104 MMOL/L (98-107); CK-MB VALUE MASS < 1.0 NG/ML (<3.6); CPK CREATINE PHOSPHOKINASE 26 U/L (34-145); CREATININE FOR GFR 1.32 MG/DL (0.55-1.30); FREE T4 1.41 NG/DL (0.89-1.76); GLOMERULAR FILTRATION RATE 40.8 (>32); GLUCOSE, FASTING 172 MG/DL (74-106); MB/CK RELATIVE INDEX 3.84 (< OR =4); PHOSPHORUS LEVEL 3.1 MG/DL (2.4-5.1); POTASSIUM SERUM 3.5 MMOL/L (3.5-5.1); SODIUM LEVEL 140 MMOL/L (136-145); TOTAL PROTEIN 7.5 G/DL (5.7-8.2)
[2024-01-21] MEDS: cefTRIAXone SOD 2 GM in D5W MINI-BAG PLUS 50 ML IV ONE (00:11)
[2024-01-21 00:18] LABS: RSV AMPLIFICATION NEGATIVE (NEGATIVE)
[2024-01-21] MEDS: METOPROLOL 5 MG/5 ML VIAL IV STA (00:23)
[2024-01-21] MEDS: NS 1,000 ML IV SCH (01:36)
[2024-01-21] MEDS ORDERED: SENN-23 PO (01:39)
[2024-01-21] MEDS ORDERED: SERT25TA21 PO (01:39)
[2024-01-21] MEDS ORDERED: ACET-907 PO (01:39)
[2024-01-21] MEDS ORDERED: DULC10SU2 PR (01:39)
[2024-01-21] MEDS ORDERED: FLEEENE12 PR (01:39)
[2024-01-21] MEDS ORDERED: MILKSUS3 PO (01:39)
[2024-01-21] MEDS ORDERED: FLOM0.4C39 PO (01:39)
[2024-01-21] MEDS ORDERED: MEMA10TA PO (01:39)
[2024-01-21] MEDS ORDERED: HYDR12.55 PO (01:42)
[2024-01-21] MEDS ORDERED: METH-855 PO (01:42)
[2024-01-21] MEDS ORDERED: HOME MED LIST COMPLETE! XX SCH (01:45)
[2024-01-21] MEDS ORDERED: LR 1,000 ML IV SCH (03:15)
[2024-01-21 04:45] VITALS: BP 117/80; TEMP 98.4; O2SAT 97
[2024-01-21] MEDS: D5W/0.9% SODIUM CHLORIDE 1,000 ML IV SCH (06:17)
[2024-01-21] MEDS: METOPROLOL TART 12.5 MG PER 1/2 TAB PO ONE (06:17)
[2024-01-21 07:23] LABS: BASO # 0.1 10^3/uL (0.0-0.2); BASO % 0.6 % (0.0-1.0); EOS # 0.4 10^3/uL (0.0-0.5); EOS % 3.9 % (0.0-3.0); HEMATOCRIT 37.1 % (36.0-47.0); HEMOGLOBIN 12.3 g/dl (12.0-15.5); LYMPH # 1.4 10^3/uL (1.5-5.0); LYMPH % 12.6 % (24.0-44.0); MEAN CORPUSCULAR HEMOGLOBIN 30.4 pg (27.0-33.0); MEAN CORPUSCULAR HGB CONC 33.2 g/dl (32.0-36.5); MEAN CORPUSCULAR VOLUME 91.6 fl (80.0-96.0); MONO # 0.9 10^3/uL (0.0-0.8); MONO % 8.5 % (2.0-8.0); NEUTROPHILS # 7.9 10^3/uL (1.5-8.5); NEUTROPHILS % 73.6 % (36.0-66.0); PLATELET COUNT, AUTOMATED 269 10^3/uL (150-450); RED BLOOD COUNT 4.05 10^6/uL (4.00-5.40); WHITE BLOOD COUNT 10.7 10^3/uL (4.0-10.0)
[2024-01-21 07:52] LABS: CALCIUM LEVEL 8.8 MG/DL (8.3-10.6); CREATININE FOR GFR 1.07 MG/DL (0.55-1.30); POTASSIUM SERUM 2.8 MMOL/L (3.5-5.1)
[2024-01-21] MEDS ORDERED: POTASSIUM CHLORIDE 10MEQ SR TABLET PO STA (07:53)
[2024-01-21 08:15] VITALS: BP 110/66; TEMP 97.2; O2SAT 99
[2024-01-21] MEDS: KCL 10MEQ/100ML SWI (KRUN) 100 ML IV SCH (08:40)
[2024-01-21] MEDS: APIXABAN 2.5 MG TAB (ELIQUIS) PO SCH (08:45)
[2024-01-21] MEDS: MEMANTINE 5MG TABLET (NAMENDA) PO SCH (08:45)
[2024-01-21] MEDS: atenoloL 50 MG TAB PO SCH ×2 (08:54→14:46)
[2024-01-21] MEDS: LETROZOLE 2.5 MG TAB PO SCH (09:12)
[2024-01-21] MEDS: CINACALCET 30 MG TAB (SENSIPAR) PO SCH (10:12)
[2024-01-21] MEDS: POTASSIUM CHLORIDE 10% LIQ 20MEQ/15ML UDC PO ONE ×2 (10:12→18:22)
[2024-01-21] MEDS: SERTRALINE HCL 25 MG TABLET PO SCH (10:51)
[2024-01-21 11:51] VITALS: BP 105/60; TEMP 97.5; O2SAT 100
[2024-01-21 16:13] VITALS: BP 109/60; TEMP 96.6; O2SAT 98
[2024-01-21 16:15] LABS: CALCIUM LEVEL 8.7 MG/DL (8.3-10.6); CREATININE FOR GFR 0.97 MG/DL (0.55-1.30); GLOMERULAR FILTRATION RATE 58.2 (>32); POTASSIUM SERUM 3.3 MMOL/L (3.5-5.1)
[2024-01-21] MEDS ORDERED: POTASSIUM CHLORIDE 10% LIQ 20MEQ/15ML UDC PO STA (17:13)
[2024-01-21] MEDS ORDERED: POTASSIUM CHLORIDE 10MEQ SR TABLET PO ONE (17:15)
[2024-01-21 20:21] VITALS: BP 109/69; TEMP 97; O2SAT 98
[2024-01-21] MEDS ORDERED: atenoloL 50 MG TAB PO SCH (21:00)
[2024-01-21] MEDS: PRAVASTATIN 10 MG TAB PO SCH (21:43)
[2024-01-21] MEDS: cefTRIAXone SOD 1 GM in D5W MINI-BAG PLUS 50 ML IV SCH (21:43)
[2024-01-21] MEDS: DONEPEZIL 5 MG TAB PO SCH (21:44)
[2024-01-21 23:21] VITALS: BP 111/56; TEMP 97.1; O2SAT 97
[2024-01-22 03:17] VITALS: BP 118/74; TEMP 97.6; O2SAT 94
[2024-01-22 05:45] LABS: BASO # 0.1 10^3/uL (0.0-0.2); BASO % 0.4 % (0.0-1.0); EOS # 0.5 10^3/uL (0.0-0.5); EOS % 3.3 % (0.0-3.0); HEMOGLOBIN 12.8 g/dl (12.0-15.5); LYMPH # 1.2 10^3/uL (1.5-5.0); LYMPH % 8.6 % (24.0-44.0); MEAN CORPUSCULAR HEMOGLOBIN 29.7 pg (27.0-33.0); MEAN CORPUSCULAR VOLUME 92.8 fl (80.0-96.0); MONO # 0.6 10^3/uL (0.0-0.8); NEUTROPHILS # 11.9 10^3/uL (1.5-8.5); NEUTROPHILS % 83.2 % (36.0-66.0); PLATELET COUNT, AUTOMATED 301 10^3/uL (150-450); RED BLOOD COUNT 4.31 10^6/uL (4.00-5.40); WHITE BLOOD COUNT 14.3 10^3/uL (4.0-10.0)
[2024-01-22 06:08] LABS: BLOOD UREA NITROGEN 14 MG/DL (9-23); CALCIUM LEVEL 8.7 MG/DL (8.3-10.6); CARBON DIOXIDE LEVEL 28 MMOL/L (20-31); CHLORIDE LEVEL 111 MMOL/L (98-107); CREATININE FOR GFR 0.86 MG/DL (0.55-1.30); GLOMERULAR FILTRATION RATE > 60.0 (>32); GLUCOSE, FASTING 102 MG/DL (74-106); MAGNESIUM LEVEL 1.8 MG/DL (1.8-2.4); POTASSIUM SERUM 3.2 MMOL/L (3.5-5.1); SODIUM LEVEL 147 MMOL/L (136-145)
[2024-01-22 06:45] LABS: CLOSTRIDIUM DIFFICILE PCR POSITIVE (NEGATIVE)
[2024-01-22] MEDS: KCL 10MEQ/100ML SWI (KRUN) 10 MEQ in IV 1 EA IV SCH (07:53)
[2024-01-22] MEDS: D5W 1,000 ML IV SCH (07:53)
[2024-01-22 08:00] VITALS: BP 130/89; TEMP 97.4; O2SAT 97
[2024-01-22] MEDS: METOPROLOL TART 25 MG TABLET PO SCH (08:01)
[2024-01-22] MEDS: FIDAXOMICIN 200 MG TAB (DIFICID) PO SCH (09:10)
[2024-01-22 11:47] VITALS: BP 112/74; TEMP 97.4; O2SAT 97
[2024-01-22 15:35] VITALS: BP 130/60; TEMP 97.1; O2SAT 94
[2024-01-22 16:01] VITALS: BP 108/63; TEMP 97.2; O2SAT 97
[2024-01-22 16:42] LABS: BLOOD UREA NITROGEN 12 MG/DL (9-23); CALCIUM LEVEL 8.2 MG/DL (8.3-10.6); CARBON DIOXIDE LEVEL 28 MMOL/L (20-31); CHLORIDE LEVEL 110 MMOL/L (98-107); CREATININE FOR GFR 0.78 MG/DL (0.55-1.30); GLOMERULAR FILTRATION RATE > 60.0 (>32); GLUCOSE, FASTING 127 MG/DL (74-106); POTASSIUM SERUM 3.6 MMOL/L (3.5-5.1); SODIUM LEVEL 144 MMOL/L (136-145)
[2024-01-22] MEDS: POTASSIUM CHLORIDE 10% LIQ 20MEQ/15ML UDC PO ONE (17:00)
[2024-01-22 20:06] VITALS: BP 138/64; TEMP 97.4; O2SAT 95
[2024-01-22] MEDS: ACETAMINOPHEN TAB 650MG DOSE (2X325MG) PO PRN (21:24)
[2024-01-23 00:44] VITALS: BP 124/70; TEMP 97.6; O2SAT 93
[2024-01-23 03:24] VITALS: BP 110/75; TEMP 97.3; O2SAT 95
[2024-01-23 06:04] LABS: BASO # 0.1 10^3/uL (0.0-0.2); BASO % 0.5 % (0.0-1.0); EOS # 0.5 10^3/uL (0.0-0.5); EOS % 5.2 % (0.0-3.0); HEMATOCRIT 38.1 % (36.0-47.0); HEMOGLOBIN 12.3 g/dl (12.0-15.5); LYMPH # 1.3 10^3/uL (1.5-5.0); MEAN CORPUSCULAR HEMOGLOBIN 30.4 pg (27.0-33.0); MEAN CORPUSCULAR HGB CONC 32.3 g/dl (32.0-36.5); MEAN CORPUSCULAR VOLUME 94.1 fl (80.0-96.0); MONO # 0.5 10^3/uL (0.0-0.8); MONO % 5.5 % (2.0-8.0); NEUTROPHILS # 7.1 10^3/uL (1.5-8.5); NEUTROPHILS % 74.2 % (36.0-66.0); PLATELET COUNT, AUTOMATED 261 10^3/uL (150-450); RED BLOOD COUNT 4.05 10^6/uL (4.00-5.40); WHITE BLOOD COUNT 9.6 10^3/uL (4.0-10.0)
[2024-01-23 06:30] LABS: BLOOD UREA NITROGEN 9 MG/DL (9-23); CALCIUM LEVEL 8.6 MG/DL (8.3-10.6); CARBON DIOXIDE LEVEL 25 MMOL/L (20-31); CHLORIDE LEVEL 108 MMOL/L (98-107); CREATININE FOR GFR 0.73 MG/DL (0.55-1.30); GLOMERULAR FILTRATION RATE > 60.0 (>32); GLUCOSE, FASTING 96 MG/DL (74-106); MAGNESIUM LEVEL 1.6 MG/DL (1.8-2.4); POTASSIUM SERUM 3.4 MMOL/L (3.5-5.1); SODIUM LEVEL 139 MMOL/L (136-145)
[2024-01-23 07:33] VITALS: BP 161/88; TEMP 97; O2SAT 98
[2024-01-23] MEDS: POTASSIUM CHLORIDE 10MEQ SR TABLET PO ONE (09:17)
[2024-01-23] MEDS: MAG SULF 1GM/100ML (MAG RUN) 1 GM in IV 1 EA IV SCH (09:18)
[2024-01-23 11:29] VITALS: BP 129/73; TEMP 96.9; O2SAT 92
[2024-01-23] MEDS: METOPROLOL TART 25 MG TABLET PO SCH (12:21)
[2024-01-23 15:35] VITALS: BP 126/62; TEMP 96.6; O2SAT 96
[2024-01-23 19:56] VITALS: BP 123/60; TEMP 97; O2SAT 97
[2024-01-24] VITALS: BP 124/84; TEMP 97; O2SAT 97
[2024-01-24 04:00] VITALS: BP 148/70; TEMP 97; O2SAT 96
[2024-01-24 05:49] LABS: BASO # 0.1 10^3/uL (0.0-0.2); BASO % 0.5 % (0.0-1.0); EOS # 0.5 10^3/uL (0.0-0.5); EOS % 5.1 % (0.0-3.0); HEMATOCRIT 35.1 % (36.0-47.0); HEMOGLOBIN 11.5 g/dl (12.0-15.5); LYMPH # 1.4 10^3/uL (1.5-5.0); LYMPH % 14.7 % (24.0-44.0); MEAN CORPUSCULAR HEMOGLOBIN 29.9 pg (27.0-33.0); MEAN CORPUSCULAR HGB CONC 32.8 g/dl (32.0-36.5); MEAN CORPUSCULAR VOLUME 91.4 fl (80.0-96.0); MONO # 0.6 10^3/uL (0.0-0.8); MONO % 6.5 % (2.0-8.0); NEUTROPHILS # 6.8 10^3/uL (1.5-8.5); NEUTROPHILS % 72.7 % (36.0-66.0); PLATELET COUNT, AUTOMATED 259 10^3/uL (150-450); RED BLOOD COUNT 3.84 10^6/uL (4.00-5.40); WHITE BLOOD COUNT 9.3 10^3/uL (4.0-10.0)
[2024-01-24 06:01] LABS: BLOOD UREA NITROGEN 8 MG/DL (9-23); CALCIUM LEVEL 8.4 MG/DL (8.3-10.6); CARBON DIOXIDE LEVEL 28 MMOL/L (20-31); CHLORIDE LEVEL 109 MMOL/L (98-107); CREATININE FOR GFR 0.82 MG/DL (0.55-1.30); GLOMERULAR FILTRATION RATE > 60.0 (>32); GLUCOSE, FASTING 96 MG/DL (74-106); MAGNESIUM LEVEL 1.9 MG/DL (1.8-2.4); POTASSIUM SERUM 3.4 MMOL/L (3.5-5.1); SODIUM LEVEL 141 MMOL/L (136-145)
[2024-01-24 07:17] VITALS: BP 155/82; TEMP 97.8; O2SAT 96
[2024-01-24] MEDS: POTASSIUM CHLORIDE 10MEQ SR TABLET PO ONE (09:24)
[2024-01-24] MEDS: TAMSULOSIN 0.4 MG CAP PO SCH (09:24)
[2024-01-24] MEDS: METOPROLOL TART 50 MG TAB PO SCH (12:16)
[2024-01-24] MEDS: LETROZOLE PO SCH (12:17)
[2024-01-24 12:44] VITALS: BP 124/70; TEMP 97.1; O2SAT 95
[2024-01-24] MEDS: DIGOXIN INJ 0.5 MG/2 ML AMP IV STA (12:47)
[2024-01-24 17:12] VITALS: BP 126/92; TEMP 97.6; O2SAT 96
[2024-01-24 20:20] VITALS: BP 117/91; TEMP 97.5; O2SAT 95
[2024-01-24] MEDS ORDERED: VANICREAM MOISTURIZING SKIN CREAM 113GM TUBE TOP PRN (20:30)
[2024-01-25] VITALS (7 sets, daily range): BP systolic 111–157; BP diastolic 56–91; TEMP 97.3–98.5; O2SAT 94–97
[2024-01-25 05:56] LABS: BASO # 0.1 10^3/uL (0.0-0.2); BASO % 0.6 % (0.0-1.0); EOS # 0.4 10^3/uL (0.0-0.5); EOS % 4.8 % (0.0-3.0); HEMATOCRIT 36.3 % (36.0-47.0); HEMOGLOBIN 11.8 g/dl (12.0-15.5); LYMPH # 1.3 10^3/uL (1.5-5.0); LYMPH % 14.9 % (24.0-44.0); MEAN CORPUSCULAR HEMOGLOBIN 29.9 pg (27.0-33.0); MEAN CORPUSCULAR HGB CONC 32.5 g/dl (32.0-36.5); MEAN CORPUSCULAR VOLUME 91.9 fl (80.0-96.0); MONO # 0.6 10^3/uL (0.0-0.8); MONO % 7.2 % (2.0-8.0); NEUTROPHILS # 6.3 10^3/uL (1.5-8.5); NEUTROPHILS % 71.9 % (36.0-66.0); PLATELET COUNT, AUTOMATED 268 10^3/uL (150-450); RED BLOOD COUNT 3.95 10^6/uL (4.00-5.40); WHITE BLOOD COUNT 8.8 10^3/uL (4.0-10.0)
[2024-01-25 06:28] LABS: BLOOD UREA NITROGEN 11 MG/DL (9-23); CALCIUM LEVEL 8.7 MG/DL (8.3-10.6); CARBON DIOXIDE LEVEL 30 MMOL/L (20-31); CHLORIDE LEVEL 110 MMOL/L (98-107); CREATININE FOR GFR 0.67 MG/DL (0.55-1.30); GLOMERULAR FILTRATION RATE > 60.0 (>32); GLUCOSE, FASTING 100 MG/DL (74-106); POTASSIUM SERUM 3.9 MMOL/L (3.5-5.1); SODIUM LEVEL 144 MMOL/L (136-145)
[2024-01-26 00:21] VITALS: BP 123/67; TEMP 98.3; O2SAT 93
[2024-01-26 04:13] VITALS: BP 124/82; TEMP 97.4; O2SAT 94
[2024-01-26 06:00] LABS: BASO % 0.4 % (0.0-1.0); EOS # 0.3 10^3/uL (0.0-0.5); EOS % 2.8 % (0.0-3.0); HEMATOCRIT 35.3 % (36.0-47.0); HEMOGLOBIN 11.5 g/dl (12.0-15.5); LYMPH # 1.4 10^3/uL (1.5-5.0); LYMPH % 12.9 % (24.0-44.0); MEAN CORPUSCULAR HEMOGLOBIN 29.9 pg (27.0-33.0); MEAN CORPUSCULAR HGB CONC 32.6 g/dl (32.0-36.5); MEAN CORPUSCULAR VOLUME 91.7 fl (80.0-96.0); MONO # 1.1 10^3/uL (0.0-0.8); MONO % 9.5 % (2.0-8.0); NEUTROPHILS # 8.2 10^3/uL (1.5-8.5); NEUTROPHILS % 73.8 % (36.0-66.0); PLATELET COUNT, AUTOMATED 254 10^3/uL (150-450); RED BLOOD COUNT 3.85 10^6/uL (4.00-5.40); WHITE BLOOD COUNT 11.1 10^3/uL (4.0-10.0)
[2024-01-26 06:36] LABS: BLOOD UREA NITROGEN 10 MG/DL (9-23); CALCIUM LEVEL 9.2 MG/DL (8.3-10.6); CARBON DIOXIDE LEVEL 32 MMOL/L (20-31); CHLORIDE LEVEL 105 MMOL/L (98-107); CREATININE FOR GFR 0.64 MG/DL (0.55-1.30); GLOMERULAR FILTRATION RATE > 60.0 (>32); GLUCOSE, FASTING 100 MG/DL (74-106); MAGNESIUM LEVEL 1.9 MG/DL (1.8-2.4); POTASSIUM SERUM 3.5 MMOL/L (3.5-5.1); SODIUM LEVEL 140 MMOL/L (136-145)
[2024-01-26 12:22] VITALS: BP 137/65; TEMP 97.3; O2SAT 95
[2024-01-26 15:54] VITALS: BP 119/74; TEMP 98.6; O2SAT 96
[2024-01-26 18:13] VITALS: BP 101/56
[2024-01-26 19:47] VITALS: BP 102/53; TEMP 98.4; O2SAT 94
[2024-01-27] VITALS (7 sets, daily range): BP systolic 100–136; BP diastolic 62–79; TEMP 97.1–98; O2SAT 95–97
[2024-01-27 05:37] LABS: BASO # 0.1 10^3/uL (0.0-0.2); BASO % 0.7 % (0.0-1.0); EOS # 0.4 10^3/uL (0.0-0.5); EOS % 4.8 % (0.0-3.0); HEMATOCRIT 34.7 % (36.0-47.0); HEMOGLOBIN 11.2 g/dl (12.0-15.5); LYMPH # 1.2 10^3/uL (1.5-5.0); LYMPH % 14.1 % (24.0-44.0); MEAN CORPUSCULAR HEMOGLOBIN 29.8 pg (27.0-33.0); MEAN CORPUSCULAR HGB CONC 32.3 g/dl (32.0-36.5); MEAN CORPUSCULAR VOLUME 92.3 fl (80.0-96.0); MONO % 11.9 % (2.0-8.0); NEUTROPHILS # 5.5 10^3/uL (1.5-8.5); NEUTROPHILS % 67.8 % (36.0-66.0); PLATELET COUNT, AUTOMATED 252 10^3/uL (150-450); RED BLOOD COUNT 3.76 10^6/uL (4.00-5.40); WHITE BLOOD COUNT 8.2 10^3/uL (4.0-10.0)
[2024-01-27 06:00] LABS: BLOOD UREA NITROGEN 14 MG/DL (9-23); CALCIUM LEVEL 8.9 MG/DL (8.3-10.6); CARBON DIOXIDE LEVEL 32 MMOL/L (20-31); CHLORIDE LEVEL 106 MMOL/L (98-107); CREATININE FOR GFR 0.74 MG/DL (0.55-1.30); GLOMERULAR FILTRATION RATE > 60.0 (>32); GLUCOSE, FASTING 102 MG/DL (74-106); MAGNESIUM LEVEL 1.9 MG/DL (1.8-2.4); POTASSIUM SERUM 3.3 MMOL/L (3.5-5.1); SODIUM LEVEL 143 MMOL/L (136-145)
[2024-01-27] MEDS: POTASSIUM CHLORIDE 10% LIQ 20MEQ/15ML UDC PO ONE (10:02)
[2024-01-28] VITALS (8 sets, daily range): BP systolic 109–145; BP diastolic 64–82; TEMP 97.3–98.1; O2SAT 95–99
[2024-01-28 06:04] LABS: BASO # 0.1 10^3/uL (0.0-0.2); BASO % 0.8 % (0.0-1.0); EOS # 0.5 10^3/uL (0.0-0.5); HEMATOCRIT 34.7 % (36.0-47.0); HEMOGLOBIN 11.2 g/dl (12.0-15.5); LYMPH # 1.3 10^3/uL (1.5-5.0); LYMPH % 17.3 % (24.0-44.0); MEAN CORPUSCULAR HEMOGLOBIN 29.9 pg (27.0-33.0); MEAN CORPUSCULAR HGB CONC 32.3 g/dl (32.0-36.5); MEAN CORPUSCULAR VOLUME 92.5 fl (80.0-96.0); MONO # 0.8 10^3/uL (0.0-0.8); MONO % 9.9 % (2.0-8.0); NEUTROPHILS # 4.9 10^3/uL (1.5-8.5); NEUTROPHILS % 64.3 % (36.0-66.0); PLATELET COUNT, AUTOMATED 287 10^3/uL (150-450); RED BLOOD COUNT 3.75 10^6/uL (4.00-5.40); WHITE BLOOD COUNT 7.6 10^3/uL (4.0-10.0)
[2024-01-28 06:27] LABS: BLOOD UREA NITROGEN 16 MG/DL (9-23); CALCIUM LEVEL 9.2 MG/DL (8.3-10.6); CARBON DIOXIDE LEVEL 32 MMOL/L (20-31); CHLORIDE LEVEL 107 MMOL/L (98-107); CREATININE FOR GFR 0.73 MG/DL (0.55-1.30); GLOMERULAR FILTRATION RATE > 60.0 (>32); GLUCOSE, FASTING 108 MG/DL (74-106); MAGNESIUM LEVEL 1.9 MG/DL (1.8-2.4); POTASSIUM SERUM 3.7 MMOL/L (3.5-5.1); SODIUM LEVEL 142 MMOL/L (136-145)
[2024-01-29 00:50] VITALS: BP 130/80; TEMP 97.3; O2SAT 96
[2024-01-29 05:30] VITALS: BP 135/88; TEMP 97.5; O2SAT 98
[2024-01-29 11:09] VITALS: BP 120/60; TEMP 97.7; O2SAT 97
[2024-01-29 17:17] VITALS: BP 132/91; TEMP 97.3; O2SAT 97
[2024-01-29 21:51] VITALS: BP 97/71; TEMP 97.5
[2024-01-30 00:52] VITALS: BP 139/84
[2024-01-30 11:05] VITALS: BP 135/83
[2024-01-30 14:00] VITALS: BP 106/57; TEMP 97.7; O2SAT 97
[2024-01-30 20:26] VITALS: BP 124/71; TEMP 97.9; O2SAT 97
[2024-01-31 06:45] VITALS: BP 119/72; TEMP 97.3; O2SAT 96
[2024-01-31 14:30] VITALS: BP 121/73; TEMP 97.9; O2SAT 95
[2024-01-31 21:06] VITALS: BP 110/85; TEMP 98.6; O2SAT 92
[2024-01-31 22:00] VITALS: BP 110/85; TEMP 98.6; O2SAT 92
[2024-01-31 23:00] VITALS: BP 111/77; TEMP 97.6; O2SAT 96
[2024-02-01 06:00] VITALS: BP 104/78; TEMP 97.5; O2SAT 92
[2024-02-01 14:42] VITALS: BP 130/70; TEMP 97.7; O2SAT 94
[2024-02-02 06:41] VITALS: TEMP 97.7
[2024-02-02 10:35] LABS: BASO # 0.1 10^3/uL (0.0-0.2); BASO % 0.9 % (0.0-1.0); EOS # 0.8 10^3/uL (0.0-0.5); HEMATOCRIT 36.8 % (36.0-47.0); HEMOGLOBIN 11.8 g/dl (12.0-15.5); LYMPH # 1.2 10^3/uL (1.5-5.0); LYMPH % 16.2 % (24.0-44.0); MEAN CORPUSCULAR HEMOGLOBIN 30.2 pg (27.0-33.0); MEAN CORPUSCULAR HGB CONC 32.1 g/dl (32.0-36.5); MEAN CORPUSCULAR VOLUME 94.1 fl (80.0-96.0); MONO # 0.6 10^3/uL (0.0-0.8); MONO % 7.5 % (2.0-8.0); NEUTROPHILS # 4.8 10^3/uL (1.5-8.5); NEUTROPHILS % 64.1 % (36.0-66.0); PLATELET COUNT, AUTOMATED 314 10^3/uL (150-450); RED BLOOD COUNT 3.91 10^6/uL (4.00-5.40); WHITE BLOOD COUNT 7.5 10^3/uL (4.0-10.0)
[2024-02-02 11:03] LABS: BLOOD UREA NITROGEN 18 MG/DL (9-23); CALCIUM LEVEL 9.6 MG/DL (8.3-10.6); CARBON DIOXIDE LEVEL 28 MMOL/L (20-31); CHLORIDE LEVEL 107 MMOL/L (98-107); GLOMERULAR FILTRATION RATE > 60.0 (>32); GLUCOSE, FASTING 126 MG/DL (74-106); POTASSIUM SERUM 4.8 MMOL/L (3.5-5.1); SODIUM LEVEL 140 MMOL/L (136-145)
[2024-02-02 19:38] VITALS: BP 99/57; TEMP 98.2; O2SAT 96
[2024-02-03 05:13] VITALS: BP 127/91; TEMP 98.2; O2SAT 96
[2024-02-03 14:00] VITALS: BP 109/71; TEMP 97.7; O2SAT 97
[2024-02-03 20:07] VITALS: BP 120/70; TEMP 98.1; O2SAT 93
[2024-02-04 06:25] VITALS: BP 130/50; TEMP 97.7; O2SAT 97
[2024-02-04 14:08] VITALS: BP 116/73; TEMP 97.5
[2024-02-04 19:49] VITALS: BP 152/78; TEMP 97.9; O2SAT 95
[2024-02-04 23:18] VITALS: BP 117/76
[2024-02-05 05:12] VITALS: BP 123/78; TEMP 97.7; O2SAT 96
[2024-02-05 20:15] VITALS: BP 113/85; TEMP 98.1; O2SAT 94
[2024-02-06 05:40] VITALS: BP 126/98; TEMP 97.2; O2SAT 97
[2024-02-06 14:51] VITALS: BP 99/67; TEMP 97.7; O2SAT 98
[2024-02-06 19:46] VITALS: BP 103/66; TEMP 97.5
[2024-02-06] MEDS: QUEtiapine FUMARATE 12.5 MG HALF-TAB PO SCH (22:06)
[2024-02-07 05:04] VITALS: BP 112/76; TEMP 98.6; O2SAT 97
[2024-02-07 06:54] LABS: BLOOD UREA NITROGEN 24 MG/DL (9-23); CALCIUM LEVEL 9.4 MG/DL (8.3-10.6); CARBON DIOXIDE LEVEL 30 MMOL/L (20-31); CHLORIDE LEVEL 106 MMOL/L (98-107); CREATININE FOR GFR 0.93 MG/DL (0.55-1.30); GLOMERULAR FILTRATION RATE > 60.0 (>32); GLUCOSE, FASTING 103 MG/DL (74-106); POTASSIUM SERUM 4.2 MMOL/L (3.5-5.1); SODIUM LEVEL 139 MMOL/L (136-145)
[2024-02-07 07:16] VITALS: BP 105/66; TEMP 97.5; O2SAT 98
[2024-02-07 10:49] VITALS: BP 121/71; O2SAT 90
[2024-02-07 11:38] VITALS: BP 110/68; O2SAT 98
[2024-02-07 14:00] VITALS: BP 106/66; TEMP 97.5; O2SAT 99
[2024-02-07 21:03] VITALS: BP_SYST 106; BP_SYST 110; BP_DIAS 63; BP_DIAS 66; TEMP 97.5; TEMP 97.9; O2SAT 97; O2SAT 99
[2024-02-08 05:06] VITALS: BP 142/92; TEMP 97.7; O2SAT 96
[2024-02-08] MEDS: NS 1,000 ML IV SCH (08:10)
[2024-02-08] MEDS: CEFDINIR 300 MG CAP (OMNICEF) PO SCH (09:00)
[2024-02-08] MEDS ORDERED: VANCOMYCIN 125MG CAPSULE PO SCH (09:00)
[2024-02-08] MEDS: VANCOMYCIN ORAL SOL 250MG/5ML ORAL SYRINGE PO SCH (09:00)
[2024-02-08 10:20] VITALS: BP 126/88; TEMP 97.7; O2SAT 96
[2024-02-08 10:52] LABS: BASO # 0.1 10^3/uL (0.0-0.2); BASO % 0.8 % (0.0-1.0); EOS # 0.8 10^3/uL (0.0-0.5); EOS % 10.1 % (0.0-3.0); HEMOGLOBIN 11.5 g/dl (12.0-15.5); LYMPH # 1.4 10^3/uL (1.5-5.0); LYMPH % 19.5 % (24.0-44.0); MEAN CORPUSCULAR HEMOGLOBIN 30.3 pg (27.0-33.0); MEAN CORPUSCULAR HGB CONC 31.9 g/dl (32.0-36.5); MONO # 0.7 10^3/uL (0.0-0.8); MONO % 9.6 % (2.0-8.0); NEUTROPHILS # 4.4 10^3/uL (1.5-8.5); NEUTROPHILS % 59.7 % (36.0-66.0); PLATELET COUNT, AUTOMATED 285 10^3/uL (150-450); RED BLOOD COUNT 3.79 10^6/uL (4.00-5.40); WHITE BLOOD COUNT 7.4 10^3/uL (4.0-10.0)
[2024-02-08 14:30] VITALS: BP 107/71; TEMP 97.7; O2SAT 97
[2024-02-08] MEDS: METOPROLOL TART 25 MG TABLET PO SCH (16:54)
[2024-02-08 21:00] VITALS: BP 118/71; TEMP 97.5; O2SAT 96
[2024-02-09 05:00] VITALS: BP 115/74; TEMP 98.1; O2SAT 98
[2024-02-09 14:18] VITALS: BP 105/67; TEMP 97.5; O2SAT 98
[2024-02-09 19:35] VITALS: BP 104/64; TEMP 98.1; O2SAT 98
[2024-02-10 05:13] VITALS: BP 128/77; TEMP 97.9; O2SAT 97
[2024-02-10] MEDS: ERTAPENEM SODIUM 1 GM in NS MINI-BAG PLUS 50 ML IV SCH (08:57)
[2024-02-10 09:21] LABS: BASO # 0.1 10^3/uL (0.0-0.2); BASO % 0.7 % (0.0-1.0); EOS # 0.6 10^3/uL (0.0-0.5); EOS % 8.4 % (0.0-3.0); HEMATOCRIT 37.7 % (36.0-47.0); HEMOGLOBIN 11.9 g/dl (12.0-15.5); LYMPH # 1.2 10^3/uL (1.5-5.0); LYMPH % 17.4 % (24.0-44.0); MEAN CORPUSCULAR HEMOGLOBIN 30.5 pg (27.0-33.0); MEAN CORPUSCULAR HGB CONC 31.6 g/dl (32.0-36.5); MEAN CORPUSCULAR VOLUME 96.7 fl (80.0-96.0); MONO # 0.6 10^3/uL (0.0-0.8); MONO % 9.3 % (2.0-8.0); NEUTROPHILS # 4.3 10^3/uL (1.5-8.5); NEUTROPHILS % 63.9 % (36.0-66.0); PLATELET COUNT, AUTOMATED 267 10^3/uL (150-450); WHITE BLOOD COUNT 6.7 10^3/uL (4.0-10.0)
[2024-02-10 14:38] VITALS: BP 92/62; TEMP 98.4; O2SAT 97
[2024-02-10 19:22] VITALS: BP 115/69; TEMP 98.1; O2SAT 98
[2024-02-10 22:16] VITALS: BP 144/60; TEMP 97.9; O2SAT 91
[2024-02-11 05:11] VITALS: BP 129/72; TEMP 97.5; O2SAT 96
[2024-02-11 07:23] LABS: BASO % 0.6 % (0.0-1.0); EOS # 0.4 10^3/uL (0.0-0.5); EOS % 8.3 % (0.0-3.0); HEMATOCRIT 35.4 % (36.0-47.0); HEMOGLOBIN 11.7 g/dl (12.0-15.5); LYMPH # 1.1 10^3/uL (1.5-5.0); LYMPH % 20.9 % (24.0-44.0); MEAN CORPUSCULAR HEMOGLOBIN 30.4 pg (27.0-33.0); MEAN CORPUSCULAR HGB CONC 33.1 g/dl (32.0-36.5); MEAN CORPUSCULAR VOLUME 91.9 fl (80.0-96.0); MONO # 0.5 10^3/uL (0.0-0.8); NEUTROPHILS # 3.2 10^3/uL (1.5-8.5); PLATELET COUNT, AUTOMATED 283 10^3/uL (150-450); RED BLOOD COUNT 3.85 10^6/uL (4.00-5.40); WHITE BLOOD COUNT 5.3 10^3/uL (4.0-10.0)
[2024-02-11 07:50] LABS: BLOOD UREA NITROGEN 13 MG/DL (9-23); CALCIUM LEVEL 8.6 MG/DL (8.3-10.6); CARBON DIOXIDE LEVEL 28 MMOL/L (20-31); CHLORIDE LEVEL 107 MMOL/L (98-107); CREATININE FOR GFR 0.77 MG/DL (0.55-1.30); GLOMERULAR FILTRATION RATE > 60.0 (>32); GLUCOSE, FASTING 91 MG/DL (74-106); MAGNESIUM LEVEL 1.8 MG/DL (1.8-2.4); SODIUM LEVEL 141 MMOL/L (136-145)
[2024-02-11 13:50] VITALS: BP 114/71; TEMP 97.5; O2SAT 97
[2024-02-11 20:00] VITALS: BP 113/71; TEMP 98.2; O2SAT 96
[2024-02-11 23:42] VITALS: BP 123/82
[2024-02-12 05:22] VITALS: BP 132/75
[2024-02-12 05:44] VITALS: TEMP 97.9; O2SAT 93
[2024-02-12 07:35] LABS: BASO # 0.1 10^3/uL (0.0-0.2); BASO % 0.8 % (0.0-1.0); EOS # 0.6 10^3/uL (0.0-0.5); HEMATOCRIT 35.6 % (36.0-47.0); HEMOGLOBIN 11.6 g/dl (12.0-15.5); LYMPH # 1.2 10^3/uL (1.5-5.0); LYMPH % 20.6 % (24.0-44.0); MEAN CORPUSCULAR HEMOGLOBIN 30.1 pg (27.0-33.0); MEAN CORPUSCULAR HGB CONC 32.6 g/dl (32.0-36.5); MEAN CORPUSCULAR VOLUME 92.2 fl (80.0-96.0); MONO # 0.7 10^3/uL (0.0-0.8); NEUTROPHILS # 3.5 10^3/uL (1.5-8.5); NEUTROPHILS % 57.3 % (36.0-66.0); PLATELET COUNT, AUTOMATED 292 10^3/uL (150-450); RED BLOOD COUNT 3.86 10^6/uL (4.00-5.40)
[2024-02-12 07:54] LABS: BLOOD UREA NITROGEN 12 MG/DL (9-23); CARBON DIOXIDE LEVEL 28 MMOL/L (20-31); CHLORIDE LEVEL 105 MMOL/L (98-107); CREATININE FOR GFR 0.69 MG/DL (0.55-1.30); GLOMERULAR FILTRATION RATE > 60.0 (>32); GLUCOSE, FASTING 81 MG/DL (74-106); MAGNESIUM LEVEL 1.8 MG/DL (1.8-2.4); POTASSIUM SERUM 3.9 MMOL/L (3.5-5.1); SODIUM LEVEL 140 MMOL/L (136-145)
[2024-02-12 15:32] VITALS: BP 124/87; TEMP 97.9; O2SAT 96
[2024-02-12 20:10] VITALS: BP 109/69; TEMP 97.9; O2SAT 97
[2024-02-12 23:42] VITALS: BP 149/82
[2024-02-13 05:00] VITALS: BP 147/86
[2024-02-13 05:35] VITALS: TEMP 97.5; O2SAT 93
[2024-02-13 07:25] LABS: BASO # 0.1 10^3/uL (0.0-0.2); EOS # 0.5 10^3/uL (0.0-0.5); EOS % 8.8 % (0.0-3.0); HEMATOCRIT 37.2 % (36.0-47.0); HEMOGLOBIN 11.9 g/dl (12.0-15.5); LYMPH # 1.4 10^3/uL (1.5-5.0); LYMPH % 23.7 % (24.0-44.0); MEAN CORPUSCULAR HEMOGLOBIN 29.5 pg (27.0-33.0); MEAN CORPUSCULAR VOLUME 92.3 fl (80.0-96.0); MONO # 0.6 10^3/uL (0.0-0.8); MONO % 9.7 % (2.0-8.0); NEUTROPHILS # 3.3 10^3/uL (1.5-8.5); NEUTROPHILS % 56.5 % (36.0-66.0); PLATELET COUNT, AUTOMATED 296 10^3/uL (150-450); RED BLOOD COUNT 4.03 10^6/uL (4.00-5.40); WHITE BLOOD COUNT 5.9 10^3/uL (4.0-10.0)
[2024-02-13 08:12] LABS: BLOOD UREA NITROGEN 14 MG/DL (9-23); CALCIUM LEVEL 9.1 MG/DL (8.3-10.6); CARBON DIOXIDE LEVEL 28 MMOL/L (20-31); CHLORIDE LEVEL 104 MMOL/L (98-107); CREATININE FOR GFR 0.73 MG/DL (0.55-1.30); GLOMERULAR FILTRATION RATE > 60.0 (>32); GLUCOSE, FASTING 83 MG/DL (74-106); MAGNESIUM LEVEL 1.8 MG/DL (1.8-2.4); POTASSIUM SERUM 4.1 MMOL/L (3.5-5.1); SODIUM LEVEL 135 MMOL/L (136-145)
[2024-02-13 14:57] VITALS: BP 100/61; TEMP 97.9; O2SAT 96
[2024-02-13 20:00] VITALS: BP 139/69; TEMP 98.1; O2SAT 98
[2024-02-13 23:13] VITALS: BP 135/70
[2024-02-14 05:51] VITALS: BP 133/71; TEMP 97.7; O2SAT 96
[2024-02-14 07:57] LABS: BASO # 0.1 10^3/uL (0.0-0.2); BASO % 1.2 % (0.0-1.0); EOS # 0.5 10^3/uL (0.0-0.5); EOS % 9.4 % (0.0-3.0); HEMATOCRIT 36.1 % (36.0-47.0); HEMOGLOBIN 11.7 g/dl (12.0-15.5); LYMPH # 1.3 10^3/uL (1.5-5.0); LYMPH % 26.3 % (24.0-44.0); MEAN CORPUSCULAR HEMOGLOBIN 30.2 pg (27.0-33.0); MEAN CORPUSCULAR HGB CONC 32.4 g/dl (32.0-36.5); MEAN CORPUSCULAR VOLUME 93.3 fl (80.0-96.0); MONO # 0.5 10^3/uL (0.0-0.8); MONO % 9.4 % (2.0-8.0); NEUTROPHILS # 2.7 10^3/uL (1.5-8.5); NEUTROPHILS % 53.5 % (36.0-66.0); PLATELET COUNT, AUTOMATED 291 10^3/uL (150-450); RED BLOOD COUNT 3.87 10^6/uL (4.00-5.40); WHITE BLOOD COUNT 5.1 10^3/uL (4.0-10.0)
[2024-02-14 08:23] LABS: BLOOD UREA NITROGEN 11 MG/DL (9-23); CALCIUM LEVEL 8.9 MG/DL (8.3-10.6); CARBON DIOXIDE LEVEL 28 MMOL/L (20-31); CHLORIDE LEVEL 106 MMOL/L (98-107); CREATININE FOR GFR 0.72 MG/DL (0.55-1.30); GLOMERULAR FILTRATION RATE > 60.0 (>32); GLUCOSE, FASTING 82 MG/DL (74-106); MAGNESIUM LEVEL 1.7 MG/DL (1.8-2.4); POTASSIUM SERUM 3.8 MMOL/L (3.5-5.1); SODIUM LEVEL 141 MMOL/L (136-145)
[2024-02-14] MEDS: MAG SULF 1GM/100ML (MAG RUN) 1 GM in IV 1 EA IV ONE (13:21)
[2024-02-14 13:55] VITALS: BP 139/86; TEMP 97.7; O2SAT 94
[2024-02-14 20:00] VITALS: BP 113/65; TEMP 97.7; O2SAT 97
[2024-02-14 23:45] VITALS: BP 114/66
[2024-02-15 05:18] VITALS: BP 155/81
[2024-02-15 13:39] VITALS: BP 98/68
[2024-02-15 14:10] VITALS: BP 147/76; TEMP 97.4; O2SAT 98
[2024-02-15 18:14] VITALS: BP 100/60; TEMP 98.1; O2SAT 97
[2024-02-15 21:00] VITALS: BP 108/65; TEMP 98.2; O2SAT 97
[2024-02-16 05:00] VITALS: BP 132/76; TEMP 97.3; O2SAT 97
[2024-02-16] MEDS ORDERED: SCOPOLAMINE 1MG TRANSDERMAL PATCH TOP PRN (10:05)
[2024-02-16 12:00] VITALS: BP 92/68
[2024-02-16 12:30] VITALS: BP 92/58; TEMP 97.2; O2SAT 98
[2024-02-16] MEDS: LORazepam 1 MG TAB PO PRN (14:44)
[2024-02-17] MEDS: METOPROLOL TART 25 MG TABLET PO SCH (20:25)
[2024-02-19] MEDS: QUEtiapine FUMARATE 25 MG TAB PO SCH (20:26)
[2024-02-24] MEDS: SENOKOT S TAB PO SCH (20:20)
[2024-02-24] MEDS ORDERED: SENOKOT S TAB PO SCH (21:00)
[2024-02-27] MEDS: LORazepam 0.5 MG TAB PO PRN (15:26)
[2024-02-28] MEDS: MORPHINE 10MG/0.5ML ORAL CONCENTRATE SOLUTION U/D SL PRN (18:06)
[2024-03-02] MEDS: ACETAMINOPHEN TAB 650MG DOSE (2X325MG) PO PRN (18:58)
[2024-03-05] MEDS ORDERED: HYOS125TA PO (12:17)
[2024-03-05] MEDS ORDERED: TRAN1DIS4 TOP ×2 (12:17→16:29)
[2024-03-05] MEDS ORDERED: MORP1SOL5 PO (12:17)
[2024-03-05] MEDS ORDERED: ONDA4TAB6 PO (12:17)
[2024-03-05] MEDS ORDERED: ATIV1TAB10 PO (12:17)
== END 2024-03-05 14:30 | disposition hospice, home (50) | DRG 372 ==
LOC: M ED 20:29 → M ED INP 01-21 03:03 → EEVIPCON 01-21 03:03 → M PCU 01-21 04:50 → M MS5PR 01-29 00:45
PROVIDERS: ADMIT Internal Medicine; ATTEND Student in an Organized Health Care Education/Training Program
DX: A04.72 Enterocolitis due to Clostridium difficile, not specified as recurrent (principal); N39.0 Urinary tract infection, site not specified; N17.9 Acute kidney failure, unspecified; E87.0 Hyperosmolality and hypernatremia; I48.91 Unspecified atrial fibrillation; E78.00 Pure hypercholesterolemia, unspecified; M19.90 Unspecified osteoarthritis, unspecified site; G47.30 Sleep apnea, unspecified; I10 Essential (primary) hypertension; F02.C0 Dementia in other diseases classified elsewhere, severe, without behavioral disturbance, psychotic disturbance, mood disturbance, and anxiety; Z96.652 Presence of left artificial knee joint; Z90.49 Acquired absence of other specified parts of digestive tract; Z51.5 Encounter for palliative care; Z66 Do not resuscitate; C50.911 Malignant neoplasm of unspecified site of right female breast; M47.812 Spondylosis without myelopathy or radiculopathy, cervical region; R29.6 Repeated falls; G30.9 Alzheimer's disease, unspecified; E87.6 Hypokalemia; C50.912 Malignant neoplasm of unspecified site of left female breast; R33.9 Retention of urine, unspecified; F41.9 Anxiety disorder, unspecified; G47.00 Insomnia, unspecified; K59.00 Constipation, unspecified; E83.42 Hypomagnesemia; Z79.01 Long term (current) use of anticoagulants; Z79.899 Other long term (current) drug therapy; Z88.0 Allergy status to penicillin